=== PATIENT | female | born 1955 | race Caucasian/White ===

== ENCOUNTER 2019-04-14 16:23 | Inpatient (IN) | payer OTHER, SELFPAY ==
[2019-04-14] VITALS (8 sets, daily range): BP systolic 129–179; BP diastolic 84–112; PULSE 20–180; RESP 11–111; TEMP 36.7–37.1; O2SAT 95–99; BMI 29.7
--- NOTE | ~2019-04-14 | XR_ITS ---
EXAMINATION: XR chest 2V DATE: 04/14/2019 17:30 INDICATION: New atrial fibrillation presenting with shortness of breath and dizziness TECHNIQUE: PA and lateral views of the chest were obtained. COMPARISON: None FINDINGS: Opacities at the bilateral lower lung zones. No pneumothorax or pleural effusion. Cardiomegaly. Mild thoracic levocurvature with moderate spondylosis. IMPRESSION: 1. Bibasilar opacities which could represent atelectasis, mild pulmonary edema or pneumonia. 2. Cardiomegaly. Reviewed, dictated and finalized at location A. ITION TECHNICIAN
--- NOTE | 2019-04-14 16:33 | ECG_ITS ---
Measurements Intervals [place] Rate: 162 P: [place]: 0 QRS: 2 QRSD: 72 T: -3 QT: 212 QTc: 348 Interpretive Statements ATRIAL FIBRILLATION WITH RAPID VENTRICULAR RESPONSE NONSPECIFIC ST & T-WAVE ABNORMALITY- INF/LAT LEADS BASELINE ARTIFACT- I, II, AVR, AVF ABNORMAL ECG Electronically Signed On 04-14-2019 16:44:32 SCENIC ARTS SUPERVISOR by Ed Sullivan D.O.
--- NOTE | 2019-04-14 16:33 | ED.ARRPALP ---
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 Pt felt SOB whenever she woke up this morning. Pt states that her SOB has resolved. She notes that she went to work today and began feeling dizzy while walking down the cantu. Pt states that she stopped walking for a minute and her dizziness went away. Pt states that her dizziness has been intermittent throughout the day. Pt received an EKG and was sent to the ED for A-fib with RVR. Pt denies a hx of a-fib. Pt states that she exercises regularly. Pt denies palpitations, dysuria, nausea, and vomiting. complaint: atrial fibrillation Onset (ago): minute(s) Duration: constant Associated symptoms: shortness of breath ((resolved)) and other (dizziness (resovled)) Related Data Home Medications Medication Instructions Recorded Confirmed aspirin 325 mg tablet 325 mg PO DAILY 04/14/19 hydrochlorothiazide 12.5 mg capsule 12.5 mg PO DAILY 04/14/19 lysine 500 mg tablet 500 mg PO DAILY 04/14/19 magnesium 30 mg tablet 30 mg PO DAILY 04/14/19 omega-3 fatty acids 1,000 mg 1,000 mg PO DAILY 04/14/19 capsule Allergies Allergy/AdvReac Type Severity Reaction Status Date / Time Sulfa (Sulfonamide Allergy Severe Anaphylaxis Verified 04/14/19 15:10 Antibiotics) Review of Systems Review of Systems: All systems reviewed & are unremarkable except as noted in HPI and below Cardiovascular: Cardiovascular: Reports irregular heart rhythm and Denies palpitations Respiratory: Respiratory: Reports dyspnea ((resolved)) Gastrointestinal: Gastrointestinal: Denies nausea and Denies vomiting Genitourinary: Genitourinary: Denies dysuria Neurologic: Reports dizziness ((resolved)) FORMERLY [facility] Past Medical History Medical History (Updated 04/14/19 @ 20:04 by Chase Paez MD) Patient denies significant medical history Surgical History Surgical History (Updated 04/14/19 @ 17:08 by Danielle Paige) No history of previous surgery Social History Social History Smoking status: Never smoker Second hand tobacco smoke exposure: No Alcohol intake: never Gender identity (if verbalized by the patient): Female Exam Const: General: healthy appearing, no acute distress and well developed Nutritional Appearance: well nourished Orientation/consciousness: patient oriented x3 (alert) and Other orientation findings (Alert) Limitations: no limitations HENMT: Head: normocephalic and atraumatic Ears: external ears normal General nose exam: No nasal discharge present and no epistaxis Face and sinus: face symmetric Mouth: Yes lip normal, Yes tongue normal and Yes moist mucous membranes Throat: other (No exudate, no erythema) Eyes: Conjunctivae: conjunctivae normal Sclera: sclerae normal EOM: EOMs intact bilaterally Neck: Neck: full ROM, no lymphadenopathy and supple Thyroid: thyroid normal Chest: Chest palpation & inspection: no tenderness Resp: Effort & Inspection: normal respiratory effort Auscultation: clear to auscultation bilaterally, no rales, no rhonchi, no wheezes and other (breath sounds equal) Cardio: Rate: tachycardic Rhythm: abnormal rhythm irregularly irregular Heart sounds: no gallops and no murmurs GI: Inspection: non-distended GI Palp: No abdominal tenderness and Yes Soft to palpation Auscultation: other (bowel sounds present) : General: Yes no CVA tenderness Back/Spine/Pelvis: Back: no CVA tenderness Thoracic/Lumbar Spine: thoracic and lumbar spine normal to inspection Skin: General skin exam: normal color and no rashes or lesions noted Neuro: Ge
[2019-04-14 16:41] LABS: Basophils Absolute Auto 0.1 K/mm3 (0.0-0.1); Basophils Percent Auto 0.7 % (0.2-1.2); Eosinophils Absolute Auto 0.2 K/mm3 (0-0.3); Eosinophils Percent Auto 2.7 % (0-4.4); Hematocrit 43.4 % (37.0-47.0); Hemoglobin 13.9 g/dL (12.0-15.0); Immature Granulocyte Absolute 0.03 K/mm3 (0.00-0.031); Immature Granulocyte Percent A 0.4 % (0-0.5); Lymphocytes Absolute Auto 2.41 K/mm3 (0.9-3.2); Lymphocytes Percent Auto 28.6 % (18.3-44.2); Mean Corpuscular Hemoglobin 27.2 pg (26-34); Mean Corpuscular Volume 84.9 fl (80-100); Mean Platelet Volume 11.7 fl (7.4-10.4); Monocytes Absolute Auto 0.5 K/mm3 (0.1-0.6); Monocytes Percent Auto 6.3 % (2.6-8.5); Neutrophils Absolute Auto 5.2 K/mm3 (1.3-6.7); Neutrophils Percent Auto 61.3 % (45.5-73.1); Platelet Count Result 296 k/mm3 (150-375); Red Blood Count 5.11 M/mm3 (4.2-5.4); Red Cell Distribution Width 13.8 % (11.5-14.5); White Blood Count 8.4 K/mm3 (4.5-10.0)
[2019-04-14] MEDS: LACTATED RINGERS 1,000 ML 999 ML IV CONT (16:45)
[2019-04-14 16:54] LABS: Alanine Aminotransferase 53 U/L (4-35); Albumin Level 4.6 g/dL (3.5-5.1); Alkaline Phosphatase 102 U/L (38-126); Aspartate Amino Transferase 49 U/L (14-36); Bilirubin,Total 0.7 mg/dL (0.2-1.3); Blood Urea Nitrogen 11 mg/dL (7-17); Calcium 9.5 mg/dL (8.4-10.2); Carbon Dioxide 22 mmol/L (22-30); Chloride 105 mmol/L (98-107); Estimated CRCL calculation 78 ml/min; Estimated Glomerular Filt Rate > 60; Glucose 97 mg/dL (65-105); Magnesium 2.1 mg/dL (1.6-2.3); Potassium 3.4 mmol/L (3.4-5.0); Sodium 142 mmol/L (137-145)
[2019-04-14 17:06] LABS: Troponin I 0.015 ng/mL (0.000-0.034)
[2019-04-14 17:24] LABS: Free T4 Free Thyroxine 1.19 ng/mL (0.78-2.19)
[2019-04-14] MEDS: ENOXAPARIN 80 MG/0.8 ML SYRINGE 75 MG SUB-Q (18:52)
--- NOTE | 2019-04-14 19:25 | PM.IMHP ---
H&P: HPI History of Present Illness Chief complaint: Shortness of breath, dizziness, abnormal EKG. Narrative: Gifty Brown is a pleasant 63-year-old female with mild hypertension who presented to the emergency department earlier this afternoon for evaluation of shortness of breath, dizziness, and abnormal EKG. She was in her usual state of health when she went to bed last night, and woke up several times throughout the night due to her dog barking which is not unusual. When she got out of bed this morning, she felt short of breath and it sounds as though that was intermittent throughout the day while she was at work. She also had several episodes of dizziness/lightheadedness. She called her primary care provider and was seen briefly in the office. She was sent for immediate EKG which demonstrated atrial fibrillation with breath ventricular response, rate of 162. With further questioning, she has had similar episodes that have lasted no more than a minute on a couple of occasions the past 3 months. She was started on diltiazem drip in the emergency department without much benefit in her rate. Cardioversion x2 was attempted with 100 joules followed by 200 joules, which did slow her rate briefly before she once again went into atrial fibrillation with rapid ventricular response. At this time, she is not willing to try amiodarone as apparently her had severe complications with that drug. She has no prior history of cardiac dysrhythmia. No known history of cardiac disease. She has been diagnosed with mild hypertension and is being treated with 12.5 milligrams of hydrochlorothiazide daily. She will check her blood pressure at home and she has never seen a reading > 150/77. Blood pressure emergency department has been as high as 179/106, but she does note feeling quite anxious. She is very active, and in fact is currently training for a 100 mile bike ride. She has no history of thyroid disease. She drinks up to 2 pots of coffee per day. She does not drink soda and rarely drinks alcohol. No supplements. she has not had exertional chest pain or shortness of breath. No orthopnea, PND, or lower extremity edema. No concerns for sleep apnea. Review of Systems Review of Systems: Narrative: 12 systems were reviewed with pertinent positives and negatives as per HPI. No recent cold or flu symptoms. Weight has remained stable. She denies orthopnea, PND, and concerns for sleep apnea. She had some nausea earlier today, but denies vomiting. Except as documented, all other systems were reviewed and are negative. [facility]LY [facility] Past Medical History Medical History (Updated 04/14/19 @ 20:41 by Josefa Quiroga PA-C) Hypertension Surgical History Surgical History (Updated 04/14/19 @ 20:39 by Josefa Quiroga PA-C) No history of previous surgery Status post cholecystectomy Status post hysterectomy Status post tonsillectomy Social History Social History (Updated 04/14/19 @ 20:50 by Josefa Quiroga PA-C) Social History: The patient lives in [place], [place] with her significant other, Sander. She has a lab/boxer mix named Margaret that lives at home. 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 She has 2 biologic sons and 1 adopted son. She designates her eldest son, Christian Stockton, as her surrogate decision maker and she wishes to be a full code. She is a lifelong nonsmoker. She drinks alcohol very rarely and on social occasions. No drug use. Meds Home Medications and Allergies Home Medications Medication Instructions Recorded Confirmed Type aspirin 325 mg tablet 325 mg PO DAILY 04/14/19 History hydrochlorothiazide 12.5 mg capsule 12.5 mg PO DAILY 04/14/19 History lysine 500 mg tablet 500 mg PO DAILY 04/14/19 History magnesium 30 mg tablet 30 mg PO DAILY 04/14/19 History omega-3 fatty acids 1,000 mg 1,000 mg PO DAILY 04/14/19 History cap
[2019-04-14] MEDS: MIDAZOLAM HCL 2 MG/2 ML VIAL 5 MG IV PUSH (19:39)
[2019-04-14] MEDS: SODIUM CHLORIDE 0.9% IV 1,000 ML 500 ML (20:05)
[2019-04-14 21:13] LABS: Troponin I 0.015 ng/mL (0.000-0.034)
--- NOTE | 2019-04-14 22:07 | ADMGEN ---
This patient, Gifty Brown, was admitted to IMU Room 202-01. Patient/family oriented to hospital policies and general routines including ID bracelet, bed and alarms, visiting hours, pain management, procedures, bathroom and other care routines, personal items, smoking policy, room service/diet, and visiting hours. Valuables list has been completed. Information on how to activate the Rapid Response Team has been discussed. Patient/Family are encouraged to report perceived risks to care and to ask questions if they do not understand what they are told or what they should do.
[2019-04-14] MEDS: ACETAMINOPHEN 325 MG TABLET 650 MG PO (22:29)
[2019-04-14] MEDS: LACTATED RINGERS 1,000 ML 125 ML IV CONT (22:39)
[2019-04-15] VITALS (15 sets, daily range): BP systolic 108–135; BP diastolic 44–86; PULSE 76–113; RESP 16–20; TEMP 36–36.8; O2SAT 93–99
[2019-04-15 00:10] LABS: Troponin I 0.013 ng/mL (0.000-0.034)
[2019-04-15] MEDS: ENOXAPARIN 80 MG/0.8 ML SYRINGE 75 MG SUB-Q ×2 (05:55→17:12)
--- NOTE | 2019-04-15 06:00 | ECHO_ITS ---
Patient Info Name: Gifty Brown Age: 63 years : 1955 Gender: Female Ht: 62 in Wt: 162 lbs BSA: 1.82 m2 HR: 82 bpm BP: 123 / 66 mmHg Heart Rhythm: Atrial Fibrillation Technical Quality: Good Exam Date: 04/15/2019 10:22 AM Exam Location: [facility]am Room: [facility] Patient Status: Inpatient Admit Date: 04/15/2019 Staff Ordering Physician: Chase Paez MD Customer Engineering Specialist: Laurel Guajardo RDCS Attending Provider: Ansley Garibay MD Referring Physician: Philippe QUARLES; Exam Type: CA echo doppler color flow Study Info Indications - AFIB Complete two-dimensional, color flow and Doppler transthoracic echocardiogram is performed. Summary 1. Left ventricular chamber dimension is mildly enlarged. 2. Left ventricular systolic function is normal, estimated at 60-65%. 3. The left ventricular diastolic function is abnormal. 4. E/e' 10 is mildly elevated. 5. Patient is in atrial fibrillation. 6. Left atrial chamber dimension is severely enlarged. 7. Right atrial chamber dimension is mildly enlarged. 8. There is mild aortic valve sclerosis. 9. The mitral valve has mildly calcified annulus. 10. There is mild to moderate mitral valve regurgitation. 11. There is mild to moderate tricuspid valve regurgitation. 12. No pulmonary hypertension, estimated pulmonary arterial systolic pressure is 23 mmHg. 13. There is trace pulmonic regurgitation. Left Ventricle E/e' 10 is mildly elevated. Patient is in atrial fibrillation. Left ventricular chamber dimension is mildly enlarged. Left ventricular systolic function is normal, estimated at 60-65%. The left ventricular diastolic function is abnormal. Right Ventricle Right ventricular chamber dimension is normal. Right ventricular systolic function is normal. Left Atria Left atrial chamber dimension is severely enlarged. Right Atria Right atrial chamber dimension is mildly enlarged. Aortic Valve The aortic valve is trileaflet. There is mild aortic valve sclerosis. There is no aortic valve stenosis. There is no aortic valve regurgitation. Pulmonic Valve There is trace pulmonic regurgitation. Mitral Valve The mitral valve has mildly calcified annulus. There is no mitral valve stenosis. There is mild to moderate mitral valve regurgitation. Tricuspid Valve There is mild to moderate tricuspid valve regurgitation. No pulmonary hypertension, estimated pulmonary arterial systolic pressure is 23 mmHg. Pericardium/Pleural There is no pericardial effusion. Inferior Vena Cava Normal inferior vena cava with >50% collapse upon inspiration consistent with normal right atrial pressure, 5 mmHg. Aorta The aortic root size at the sinus of Valsalva is normal. Left Ventricular Outflow Tract Name Value Normal LVOT 2D LVOT Diameter 2.0 cm LVOT Doppler LVOT Peak Gradient 4 mmHg LVOT Mean Gradient 3 mmHg LVOT VTI 20 cm LVOT VTI/AV VTI Ratio 0.8 LVOT Stroke Volume 64 ml
[2019-04-15] MEDS: ACETAMINOPHEN 325 MG TABLET 650 MG PO (06:51)
[2019-04-15] MEDS: LACTATED RINGERS 1,000 ML 125 ML IV CONT (09:14)
[2019-04-15] MEDS: OMEGA 3 POLYUNSAT FATTY ACIDS 1 GM CAP PO (09:15)
[2019-04-15] MEDS: ASPIRIN 81 MG CHEWABLE TABLET PO (09:15)
--- NOTE | 2019-04-15 11:38 | PM.CNCAR ---
Assessment and Plan Assessment and plan (1) Atrial fibrillation with rapid ventricular response: Code(s): I48.91 - Unspecified atrial fibrillation Status: Acute Assessment and Plan: [id number] 2. Rate controlled with Diltiazem. She is on Lovenox. She can be on aspirin EC 325 mg daily upon discharge given low risk for cardioembolism. Start Sotalol 80 mg BID for rhythm control. If she is still in it on the third day, consider CHAPIS/Cardioversion. Check echo. (2) Hypertension: Code(s): I10 - Essential (primary) hypertension Status: Acute Assessment and Plan: Stable. History of Present Illness History of Present Illness Consult date/time: 04/15/19 11:38 Consult regarding new onset atrial fib with RVR. 63 yr old woman with history of hypertension reports waking up this morning with dizziness intermittently. On the way to work she noticed ENRIQUEZ walking into building when normally she can walk 3 miles without any problems. She wento to see her PCP who directed her to get EKG and found she was in atrial fib at 162 bpm. She was then advised to go to ER. In ED, her HR was fast and difficult to get HR down so she had 2 DC cardioversions when it cardioverted but returned into atrial fibrillation immediately. Currently she is in atrial fib at 90-100 bpm on Diltiazem drip. Denies chest pain, sob, orthopnea, edema, palpitations. 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 Reason For Visit: A-FIB WITH RVR,NEW ONSET Review of Systems Review of Systems: All systems reviewed & are unremarkable except as noted in HPI and below Constitutional: Constitutional: Reports as per HPI and Denies chills Cardiovascular: Cardiovascular: Reports as per HPI, Denies chest pain, Denies diaphoresis, Denies leg edema and Reports lightheadedness Respiratory: Respiratory: Reports as per HPI and Reports dyspnea on exertion Gastrointestinal: Gastrointestinal: Reports as per HPI and Denies abdominal pain Genitourinary: Genitourinary: Reports as per HPI and Denies urinary frequency Musculoskeletal: Musculoskeletal: Reports as per HPI Neurologic: Reports as per HPI and Denies confusion [facility] Past Medical History Medical History (Updated 04/14/19 @ 20:41 by Josefa Quiroga PA-C) Hypertension Surgical History Surgical History (Updated 04/14/19 @ 20:39 by Josefa Quiroga PA-C) No history of previous surgery Status post cholecystectomy Status post hysterectomy Status post tonsillectomy Family History Family History (Updated 04/15/19 @ 00:48 by Nica Domingo RN) Sibling Family history of malignant neoplasm Family history of lupus erythematosus Hypertension Family history of arthritis Father Family history of dementia Hypertension Mother Hypertension Sibling Family history of arthritis Social History Social History (Updated 04/14/19 @ 20:50 by Josefa Quiroga PA-C) Social History: The patient lives in [place], [place] with her significant other, Sander. She has a lab/boxer mix named Margaret that lives at home. 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 She has 2 biologic sons and 1 adopted son. She designates her eldest son, Christian Stockton, as her surrogate decision maker and she wishes to be a full code. She is a lifelong nonsmoker. She drinks alcohol very rarely and on social occasions. No drug use. Smoking packs per day: 0.5 Smoking cigarettes per day: 10.0 Years smoked: 12 Smoking pack-years: 6.00 Smoking status: Former smoker Alcohol intake: never Substance use: never Agree to blood products: Yes Meds Home Medications and Allergies Home Medications Medication Instructions Recorded Confirmed Type aspirin 325 mg tablet 325 mg PO DAILY 04/14/19 04/14/19 History hydrochlorothiazide 12.5 mg capsule 12.5 mg PO HS 04/14/1904/14
[2019-04-15] MEDS: SOTALOL HCL 80 MG TABLET PO ×2 (13:35→21:14)
--- NOTE | 2019-04-15 14:22 | PM.IMPN ---
Progress Note: A&P Assessment and Plan (1) Atrial fibrillation with rapid ventricular response: Code(s): I48.91 - Unspecified atrial fibrillation Status: Acute Assessment and Plan: Jacky Brown is a pleasant 63-year-old female with mild hypertension who presented to the emergency department earlier this afternoon for evaluation of shortness of breath, dizziness, and abnormal EKG. Pt was on diltiazem drip in the emergency department without much benefit in her rate. Cardioversion x2 was attempted with 100 joules followed by 200 joules, which did slow her rate briefly before she once again went into atrial fibrillation with rapid ventricular response. Pt still in AF slightly fast. Seen by cardiology Dr Sullivan, pt to start on sotolol today, home tomorrow. Echo shows Patient is in atrial fibrillation. Left ventricular chamber dimension is mildly enlarged. Left ventricular systolic function is normal, estimated at 60-65%. The left ventricular diastolic function is abnormal. (2) Hypertension: Code(s): I10 - Essential (primary) hypertension Status: Acute Assessment and Plan: Will monitor overnite and discharge tomorrow Subjective Date/time seen: 04/15/19 14:22 Interval history: Jacky Brown is a pleasant 63-year-old female with mild hypertension who presented to the emergency department earlier this afternoon for evaluation of shortness of breath, dizziness, and abnormal EKG. Pt was on diltiazem drip in the emergency department without much benefit in her rate. Cardioversion x2 was attempted with 100 joules followed by 200 joules, which did slow her rate briefly before she once again went into atrial fibrillation with rapid ventricular response. Pt still in AF slightly fast. Seen by cardiology Dr Sullivan, pt to start on sotolol today, home tomorrow. Review of Systems Cardiovascular: Cardiovascular: Denies no additional cardiovascular complaints, Denies chest pain, Denies leg edema, Denies lightheadedness and Reports palpitations Respiratory: Respiratory: Denies no additional respiratory complaints Gastrointestinal: Gastrointestinal: Denies no additional gastrointestinal complaints Musculoskeletal: Musculoskeletal: Denies no additional musculoskeletal complaints Neurologic: Denies system reviewed and no additional complaints, except as documented Exam Narrative: Exam Narrative: General: A well-developed, well-nourished female supine in bed in no acute distress. Nontoxic in appearance. HEENT: Normocephalic, atraumatic. PERRL, EOMI. Sclerae anicteric. Oral mucosa moist. Oropharynx clear. Neck: Supple. No thyromegaly, bruits, or JVD. Respiratory: Lungs are clear to auscultation bilaterally. Cardiovascular: Irregular rate and rhythm, telemetry demonstrating atrial fibrillation with rapid ventricular response with rates in the 160s. No murmur. Gastrointestinal: Abdomen is soft, nontender, and nondistended with positive bowel sounds. Skin: Warm and dry. No rash or lesions on limited exam. Extremities: No cyanosis, clubbing, or edema. Radial and pedal pulses intact. Neurological: Alert. Cranial nerves 2-12 are grossly intact. No gross focal deficits to casual conversation. Psychiatric: Pleasant and cooperative. Slightly anxious. Judgment and insight intact. Objective Data Vital Signs Vital Signs: Vital Signs - 24 hr 04/14/19 16:34 04/14/19 16:47 04/14/19 19:41 Temperature 37.1 C Pulse Rate 180 H 145 H 150 H Respiratory Rate 23 H 31 H 18 Blood Pressure 179/106 H 163/102 H 139/96 H Pulse Oximetry 98 95 97 04/14/19 19:44 04/14/19 21:00 04/14/19 22:02 Temperature Pulse Rate 144 H 118 H 129 H Respiratory Rate 11 L 23 H Blood Pressure 137/112 H 129/84 Pulse Oximetry 99 98 04/14/19 22:07 04/14/19 22:15 04/15/19 00:00 Temperature 36.7 C 36.6 C Pulse Rate 20 L 114 H 107 H Respiratory Rate 111 H 20 Blood Pressure 140/87 129/71 Pulse Oximetry 97 99
--- NOTE | 2019-04-15 16:38 | ECG_ITS ---
Measurements Intervals [place] Rate: 82 P: [place]: 0 QRS: -4 QRSD: 86 T: 256 QT: 397 QTc: 465 Interpretive Statements ATRIAL FIBRILLATION NONSPECIFIC ST & T-WAVE ABNORMALITY- ANTEROLAT/LAT LEADS ABNORMAL ECG Electronically Signed On 04-15-2019 19:47:01 MANAGER PARK by Ed Sullivan D.O.
[2019-04-15] MEDS: hydroCHLOROthiazide 12.5 MG CAPSULE PO (21:14)
[2019-04-16] VITALS (17 sets, daily range): BP systolic 118–133; BP diastolic 63–74; PULSE 52–80; RESP 16–20; TEMP 36–36.4; O2SAT 94–97
[2019-04-16] MEDS: ENOXAPARIN 80 MG/0.8 ML SYRINGE 75 MG SUB-Q ×2 (05:42→17:40)
--- NOTE | 2019-04-16 06:18 | ECG_ITS ---
Measurements Intervals [place] Rate: 66 P: 73 HI: 163 QRS: 4 QRSD: 81 T: 0 QT: 410 QTc: 430 Interpretive Statements SINUS RHYTHM ATRIAL PREMATURE COMPLEXES BORDERLINE ST-T WAVE ABNORMALITY- DIFFUSE LEADS BASELINE ARTIFACT- I, II, III, AVR, AVL, AVF BORDERLINE ECG Electronically Signed On 04-16-2019 9:03:27 TALENT ASSISTANT by Ed Sullivan D.O.
--- NOTE | 2019-04-16 08:17 | PM.PNCARD ---
Progress Note: A&P Assessment and Plan (1) Atrial fibrillation with rapid ventricular response: Code(s): I48.91 - Unspecified atrial fibrillation Status: Acute Assessment and Plan: Cardioverted on 04/15/19. Continue Sotalol and Lovenox for another 3 doses. Check EKG 1-2 hours post each dose of Sotalol to check QT interval. (2) Hypertension: Code(s): I10 - Essential (primary) hypertension Status: Acute Assessment and Plan: Stable. Give KCl 40 meq PO x 1. Subjective Date/time seen: 04/16/19 08:17 Reports she felt she cardioverted yesterday. No longer having difficulty with taking a deep breath. Denies chest pain. Exam Const: General: comfortable and no acute distress Neck: Neck: no JVD Resp: Auscultation: clear to auscultation bilaterally, no crackles, no rales, no rhonchi and no wheezes Cardio: Rate: regular rate Rhythm: regular rhythm Heart sounds: no murmurs GI: Inspection: non-distended Neuro: Speech: normal speech Extrem: Right lower extremity: no edema Left lower extremity: no edema Objective Data Vital Signs Vital Signs: Vital Signs - 24 hr 04/15/19 10:00 04/15/19 12:00 04/15/19 13:35 Temperature 96.8 F L Pulse Rate 106 H 83 84 Respiratory Rate 18 Blood Pressure Pulse Oximetry 97 04/15/19 14:00 04/15/19 16:00 04/15/19 18:00 Temperature 98.3 F Pulse Rate 85 113 H 82 Respiratory Rate 16 Blood Pressure 130/86 Pulse Oximetry 95 04/15/19 20:00 04/15/19 21:14 04/15/19 21:47 Temperature 98.0 F Pulse Rate 80 88 95 Respiratory Rate 18 Blood Pressure 135/74 Pulse Oximetry 95 04/15/19 23:40 04/16/19 00:00 04/16/19 01:46 Temperature 97.7 F Pulse Rate 79 66 70 Respiratory Rate 20 20 Blood Pressure 118/65 Pulse Oximetry 94 94 04/16/19 04:00 04/16/19 05:39 Temperature Pulse Rate 74 68 Respiratory Rate 20 Blood Pressure Pulse Oximetry 94 Intake/Output Intake/Output: Intake & Output 04/13/19 04/14/19 04/15/19 04/16/19 23:59 23:59 23:59 23:59 Intake Total 1999 3670 100 Output Total 850 Balance 1999 2820 100 Meds/Results Medications: Active Medications Generic Name Dose Route Start Last Admin Trade Name Freq PRN Reason Stop Dose Admin Acetaminophen 650 mg 04/14/19 20:04 04/15/19 06:51 Tylenol Tablet PO 650 mg Q4H PRN Administration Mild Pain (1-3) or Fever Aspirin 81 mg 04/15/19 08:00 04/15/19 09:15 Aspirin Chewable PO 81 mg DAILY@0800 PILAR Administration Enoxaparin Sodium 75 mg 04/15/19 06:00 04/16/19 05:42 Lovenox SUB-Q 75 mg Q12H PILAR Administration Fish Oil 1 gm 04/15/19 09:00 04/15/19 09:15 Lovaza PO 1 gm DAILY PILAR Administration Hydrochlorothiazide 12.5 mg 04/15/19 21:00 04/15/19 21:14 Hydrochlorothiazide PO 12.5 mg HS PILAR Administration Magnesium Gluconate 27 mg 04/15/19 09:00 04/15/19 09:15 Magonate PO 05/15/19 09:01 27 mg DAILY PILAR Administration Sotalol HCl 80 mg 04/15/19 11:40 04/15/19 21:14 Betapace PO 80 mg Q12HR PILAR Administration Radiology Results: ITS Impressions Chest X-Ray 04/14/19 17:34 IMPRESSION: 1. Bibasilar opacities which could represent atelectasis, mild pulmonary edema or pneumonia. 2. Cardiomegaly. Quality VTE Prophylaxis VTE prophylaxis: pharmacologic ordered
[2019-04-16] MEDS: OMEGA 3 POLYUNSAT FATTY ACIDS 1 GM CAP PO (08:42)
[2019-04-16] MEDS: SOTALOL HCL 80 MG TABLET PO ×2 (08:42→20:26)
[2019-04-16] MEDS: ASPIRIN 81 MG CHEWABLE TABLET PO (08:42)
[2019-04-16] MEDS: POTASSIUM CHLORIDE 20 MEQ TABLET 40 MEQ PO (08:42)
[2019-04-16] MEDS: ACETAMINOPHEN 325 MG TABLET 650 MG PO (08:44)
--- NOTE | 2019-04-16 10:00 | ECG_ITS ---
Measurements Intervals [place] Rate: 49 P: 46 NM: 172 QRS: 3 QRSD: 85 T: -30 QT: 482 QTc: 435 Interpretive Statements SINUS BRADYCARDIA NONSPECIFIC ST & T-WAVE ABNORMALITY- DIFFUSE LEADS ABNORMAL ECG Electronically Signed On 04-16-2019 9:02:53 STAMP ANALYST by Ed Sullivan D.O.
--- NOTE | 2019-04-16 12:16 | PM.IMPN ---
Progress Note: A&P Assessment and Plan (1) Atrial fibrillation with rapid ventricular response: Code(s): I48.91 - Unspecified atrial fibrillation Status: Acute Assessment and Plan: Jacky Brown is a pleasant 63-year-old female with mild hypertension who presented to the emergency department earlier this afternoon for evaluation of shortness of breath, dizziness, and abnormal EKG. Pt was on diltiazem drip in the emergency department without much benefit in her rate. Cardioversion x2 was attempted with 100 joules followed by 200 joules, which did slow her rate briefly before she once again went into atrial fibrillation with rapid ventricular response. Pt still in AF slightly fast. Seen by cardiology Dr Sullivan, pt to start on sotolol today, continue to day and monitor hopeful discharge deanna home. Echo shows Patient is in atrial fibrillation. Left ventricular chamber dimension is mildly enlarged. Left ventricular systolic function is normal, estimated at 60-65%. The left ventricular diastolic function is abnormal. (2) Hypertension: Code(s): I10 - Essential (primary) hypertension Status: Acute Assessment and Plan: Will monitor overnite and discharge tomorrow Subjective Date/time seen: 04/16/19 12:16 Interval history: Jacky Brown is a pleasant 63-year-old female with mild hypertension who presented to the emergency department earlier this afternoon for evaluation of shortness of breath, dizziness, and abnormal EKG. Pt was on diltiazem drip in the emergency department without much benefit in her rate. Cardioversion x2 was attempted with 100 joules followed by 200 joules, which did slow her rate briefly before she once again went into atrial fibrillation with rapid ventricular response. Pt still by Dr Sullivan started on sotalol converted to NSR pt to continue being monitored for one more day and discharged home on sotalol and ASA as per cardiology Review of Systems Review of Systems: All systems reviewed & are unremarkable except as noted in HPI and below Constitutional: Constitutional: Reports no additional constitutional complaints Cardiovascular: Cardiovascular: Denies no additional cardiovascular complaints, Denies chest pain, Denies leg edema, Denies lightheadedness and Reports palpitations Respiratory: Respiratory: Denies no additional respiratory complaints Gastrointestinal: Gastrointestinal: Denies no additional gastrointestinal complaints Musculoskeletal: Musculoskeletal: Denies no additional musculoskeletal complaints Neurologic: Denies system reviewed and no additional complaints, except as documented Endocrine: Endocrine: Denies palpitations Exam Narrative: Exam Narrative: General: A well-developed HEENT: Normocephalic Neck: Supple. Respiratory: Lungs are clear to auscultation bilaterally. Cardiovascular: Irregular rate and rhythm, telemetry demonstrating atrial fibrillation with rapid ventricular response with rates in the 160s. No murmur. Gastrointestinal: Abdomen is soft, nontender, and nondistended with positive bowel sounds. Skin: Warm and dry. No rash or lesions on limited exam. Extremities: No cyanosis, clubbing, or edema. Radial and pedal pulses intact. Neurological: Alert. Cranial nerves 2-12 are grossly intact. No gross focal deficits to casual conversation. Psychiatric: Pleasant and cooperative. Slightly anxious. Judgment and insight intact. Objective Data Vital Signs Vital Signs: Vital Signs - 24 hr 04/15/19 13:35 04/15/19 14:00 04/15/19 16:00 Temperature 36.8 C Pulse Rate 84 85 113 H Respiratory Rate 16 Blood Pressure 130/86 Pulse Oximetry 95 04/15/19 18:00 04/15/19 20:00 04/15/19 21:14 Temperature 36.7 C Pulse Rate 82 80 88 Respiratory Rate 18 Blood Pressure 135/74 Pulse Oximetry 95 04/15/19 21:47 04/15/19 23:40 04/16/19 00:00 Temperature 36.5 C Pulse Rate 95 79 66 Respiratory Rate 20 20 Blood
--- NOTE | 2019-04-16 14:06 | PC.NURSE ---
On 04/16/19, the student, [adan birmingham ], provided care and completed [facility] documentation on this patient. I have reviewed the student's documentation and agree with the findings.
[2019-04-16] MEDS: hydroCHLOROthiazide 12.5 MG CAPSULE PO (20:26)
--- NOTE | 2019-04-16 22:30 | ECG_ITS ---
Measurements Intervals [place] Rate: 62 P: 55 GA: 157 QRS: 6 QRSD: 89 T: -8 QT: 453 QTc: 463 Interpretive Statements SINUS RHYTHM BORDERLINE ST-T WAVE ABNORMALITY- DIFFUSE LEADS BORDERLINE ECG Electronically Signed On 04-17-2019 7:02:49 DIRECTOR WEIGHTS AND MEASURES by Ed Sullivan D.O.
[2019-04-17] VITALS (9 sets, daily range): BP systolic 117–135; BP diastolic 62–72; PULSE 54–70; RESP 18–20; TEMP 36.2–37.2; O2SAT 92–96
[2019-04-17 05:10] LABS: Blood Urea Nitrogen 9 mg/dL (7-17); Calcium 8.9 mg/dL (8.4-10.2); Carbon Dioxide 26 mmol/L (22-30); Chloride 106 mmol/L (98-107); Estimated CRCL calculation 66 ml/min; Estimated Glomerular Filt Rate > 60; Glucose 84 mg/dL (65-105); Potassium 3.3 mmol/L (3.4-5.0); Sodium 140 mmol/L (137-145)
[2019-04-17] MEDS: ENOXAPARIN 80 MG/0.8 ML SYRINGE 75 MG SUB-Q (05:54)
[2019-04-17] MEDS: OMEGA 3 POLYUNSAT FATTY ACIDS 1 GM CAP PO (07:32)
[2019-04-17] MEDS: SOTALOL HCL 80 MG TABLET PO (07:32)
[2019-04-17] MEDS: POTASSIUM CHLORIDE 20 MEQ TABLET 40 MEQ PO (07:32)
[2019-04-17] MEDS: ASPIRIN 81 MG CHEWABLE TABLET PO (07:36)
--- NOTE | 2019-04-17 07:50 | PM.PNCARD ---
Progress Note: A&P Assessment and Plan (1) Atrial fibrillation with rapid ventricular response: Code(s): I48.91 - Unspecified atrial fibrillation Status: Acute Assessment and Plan: [id number] 2. Cardioverted on 04/15/19. Received Sotalol 80 mg BID for a total of 5 doses and stable QTc interval. D/C Lovenox and start Aspirin EC 325 mg daily. F/U with me in 1 week. (2) Hypertension: Code(s): I10 - Essential (primary) hypertension Status: Acute Assessment and Plan: Stable. Potassium 3.3 today. Give KCl 40 meq PO x 1. Stop HCTZ. Start Losartan 25 mg daily. Subjective Date/time seen: 04/17/19 07:50 She feels great and wants to go home. Denies chest pain or sob. Exam Const: General: comfortable and no acute distress Neck: Neck: no JVD Cardio: Rate: regular rate Rhythm: regular rhythm Heart sounds: no murmurs Neuro: Speech: normal speech Extrem: Right lower extremity: no edema Left lower extremity: no edema Objective Data Vital Signs Vital Signs: Vital Signs - 24 hr 04/16/19 08:00 04/16/19 08:30 04/16/19 08:42 Temperature 96.8 F L 96.8 F L Pulse Rate 55 L 52 L 80 Respiratory Rate 16 16 Blood Pressure 118/69 118/69 Pulse Oximetry 97 97 04/16/19 09:52 04/16/19 11:14 04/16/19 12:00 Temperature 97.4 F L Pulse Rate 54 L 52 L 61 Respiratory Rate 18 Blood Pressure 121/74 Pulse Oximetry 97 04/16/19 12:04 04/16/19 14:00 04/16/19 16:00 Temperature 97.4 F L 96.9 F L Pulse Rate 52 L 58 L 67 Respiratory Rate 18 18 Blood Pressure 121/74 133/69 Pulse Oximetry 97 96 04/16/19 18:00 04/16/19 20:00 04/16/19 20:26 Temperature 97.5 F L Pulse Rate 66 67 68 Respiratory Rate 16 Blood Pressure 133/63 Pulse Oximetry 95 04/16/19 22:00 04/17/19 00:00 04/17/19 02:00 Temperature 99 F Pulse Rate 65 61 63 Respiratory Rate 18 Blood Pressure 117/72 Pulse Oximetry 92 04/17/19 03:37 04/17/19 03:38 04/17/19 04:00 Temperature 97.2 F L Pulse Rate 54 L 54 L 63 Respiratory Rate 20 20 Blood Pressure 119/62 Pulse Oximetry 94 94 04/17/19 06:00 04/17/19 07:32 Temperature Pulse Rate 63 70 Respiratory Rate Blood Pressure Pulse Oximetry Intake/Output Intake/Output: Intake & Output 04/14/19 04/15/19 04/16/19 04/17/19 23:59 23:59 23:59 23:59 Intake Total 1999 3670 780 400 Output Total 850 Balance 1999 2820 780 400 Meds/Results Medications: Active Medications Generic Name Dose Route Start Last Admin Trade Name Freq PRN Reason Stop Dose Admin Acetaminophen 650 mg 04/14/19 20:04 04/16/19 08:44 Tylenol Tablet PO 650 mg Q4H PRN Administration Mild Pain (1-3) or Fever Aspirin 81 mg 04/15/19 08:00 04/17/19 07:36 Aspirin Chewable PO 81 mg DAILY@0800 [facility] Administration Enoxaparin Sodium 75 mg 04/15/19 06:00 04/17/19 05:54 Lovenox SUB-Q 75 mg Q12H PILAR Administration Fish Oil 1 gm 04/15/19 09:00 04/17/19 07:32 Lovaza PO 1 gm DAILY PILAR Administration Losartan Potassium 25 mg 04/17/19 09:00 Cozaar PO QAM PILAR Magnesium Gluconate 27 mg 04/15/19 09:00 04/17/19 07:33 Magonate PO 05/15/19 09:01 27 mg DAILY PILAR Administration Sotalol HCl 80 mg 04/15/19 11:40 04/17/19 07:32 Betapace PO 80 mg Q12HR PILAR Administration Radiology Results: ITS Impressions Chest X-Ray 04/14/19 17:34 IMPRESSION: 1. Bibasilar opacities which could represent atelectasis, mild pulmonary edema or pneumonia. 2. Cardiomegaly. Labs Labs: Laboratory Results - last 24 hr 04/17/19 04:13 Sodium 140 Potassium 3.3 L Chloride 106 Carbon Dioxide 26 BUN 9 Creatinine 0.70 Estim Creat Clear Calc 66 Estimated GFR > 60 Glucose 84 Calcium 8.9 Quality VTE Prophylaxis VTE prophylaxis: pharmacologic ordered
[2019-04-17] MEDS: ASPIRIN 81 MG CHEWABLE TABLET 243 MG PO (08:41)
[2019-04-17] MEDS: LOSARTAN POTASSIUM 25 MG TABLET PO (08:41)
--- NOTE | 2019-04-17 09:08 | PM.DS ---
DS: Diagnosis Admitting Diagnosis Admitting Diagnosis: Unspecified atrial fibrillation Discharge Diagnosis (1) Atrial fibrillation with rapid ventricular response: Code(s): I48.91 - Unspecified atrial fibrillation Status: Acute Assessment and Plan: Jacky Brown is a pleasant 63-year-old female with mild hypertension who presented to the emergency department earlier this afternoon for evaluation of shortness of breath, dizziness, and abnormal EKG. Pt was on diltiazem drip in the emergency department without much benefit in her rate. Cardioversion x2 was attempted with 100 joules followed by 200 joules, which did slow her rate briefly before she once again went into atrial fibrillation with rapid ventricular response. Pt still in AF slightly fast. Seen by cardiology Dr Sullivan, pt to started on sotolol for rate control. Echo shows Patient is in atrial fibrillation. Left ventricular chamber dimension is mildly enlarged. Left ventricular systolic function is normal, estimated at 60-65%. The left ventricular diastolic function is abnormal. Pt is converted backto NSR and is stable for discharge. Follow up with Dr Sullivan in 1 weeks time. (2) Hypertension: Code(s): I10 - Essential (primary) hypertension Status: Chronic Assessment and Plan: Chronic and stable. Bp is 135/64 DS: Summary Time Spent with Patient Time attestation: Total time spent providing and/or coordinating discharge services:40 minutes on day of discharge. Exam Narrative: Exam Narrative: General: A well-developed HEENT: Normocephalic Neck: Supple. Respiratory: Lungs are clear to auscultation bilaterally. Cardiovascular: Irregular rate and rhythm, telemetry demonstrating atrial fibrillation with rapid ventricular response with rates in the 160s. No murmur. Gastrointestinal: Abdomen is soft, nontender, and nondistended with positive bowel sounds. Skin: Warm and dry. No rash or lesions on limited exam. Extremities: No cyanosis, clubbing, or edema. Radial and pedal pulses intact. Neurological: Alert. Cranial nerves 2-12 are grossly intact. No gross focal deficits to casual conversation. Psychiatric: Pleasant and cooperative. Slightly anxious. Judgment and insight intact. DS: Data Data Completed and Pending Labs on day of discharge: Labs from last 24 hours 04/17/19 04:13 Sodium 140 Potassium 3.3 L Chloride 106 Carbon Dioxide 26 BUN 9 Creatinine 0.70 Estim Creat Clear Calc 66 Estimated GFR > 60 Glucose 84 Calcium 8.9 Discharge Plan Discharge Attending physician on discharge: Ansley Garibay Consulting providers: Ed Sullivan Discharging Clinician: Ansley Garibay Anticipated Discharge Date/Time: 04/17/19 09:07 Patient Disposition: Home, Self-Care Activity: as tolerated Diet: heart healthy Patient Instructions: Antibiotic Form Stand Alone Forms: General Discharge Information Follow-up/Referrals: Ed Sullivan, [Physician] - 1 Week (call for follow up appt. in one week) Discharge Medications: New sotalol 80 mg Tablet 80 mg PO Q12HR Qty: 60 RF: 0 losartan 25 mg Tablet 25 mg PO QAM Qty: 30 RF: 0 omega-3 acid ethyl esters 1 gram Capsule 1 g PO DAILY RF: 0 Continued lysine [L-Lysine] 500 mg tablet 500 mg PO DAILY RF: 0 magnesium 30 mg tablet 30 mg PO DAILY RF: 0 aspirin 325 mg tablet 325 mg PO DAILY RF: 0 Discontinued hydrochlorothiazide 12.5 mg capsule 12.5 mg PO HS RF: 0 omega-3 fatty acids [Fish Oil Concentrate] 1,000 mg capsule 1,000 mg PO DAILY RF: 0 Date of admission: 04/15/19 10:09 Primary Care Provider: Jay Jay Sidhu Admitting Provider: Flora Suh Attending physician on admission: Ansley Garibay Condition: Stable
--- NOTE | 2019-04-17 09:09 | ECG_ITS ---
Measurements Intervals [place] Rate: 62 P: 42 MO: 150 QRS: 1 QRSD: 77 T: 0 QT: 412 QTc: 420 Interpretive Statements SINUS RHYTHM VOLTAGE CRITERIA FOR LVH NONSPECIFIC T-WAVE ABNORMALITY- ANTEROLAT/INF LEADS BORDERLINE ECG Electronically Signed On 04-17-2019 9:32:33 NATIONAL COVERAGE SPECIALIST by Ed Sullivan D.O.
== END 2019-04-17 10:23 | disposition home or self-care (01) | DRG 310 ==
LOC: ANHED 20:43 → ANHIMU 21:04
PROVIDERS: Internal Medicine Cardiovascular Disease; Admitting Provider Hospitalist; Emergency Provider Emergency Medicine; PCP Physician Assistant; Visit Provider Family Medicine
DX: I48.91 Unspecified atrial fibrillation (principal); I10 Essential (primary) hypertension; F41.9 Anxiety disorder, unspecified; Z90.49 Acquired absence of other specified parts of digestive tract; Z90.710 Acquired absence of both cervix and uterus
CPT/HCPCS: 36415; 71046; 80048; 80053; 83735; 84439; 84443; 84484; 85025; 93005; 93306; 94762; 96361; 96365; 96366; 96372; 96375; 96376; 99285; A9270; G0378; J1650; J2250; J7030; J7120

== ENCOUNTER 2019-05-04 02:47 | Observation (INO) | payer OTHER, SELFPAY ==
[2019-05-04] VITALS (29 sets, daily range): BP systolic 138–166; BP diastolic 71–93; PULSE 59–98; RESP 12–20; TEMP 35.7–37.2; O2SAT 95–100; BMI 30.7
--- NOTE | 2019-05-04 | ECHOL_ITS ---
Patient Info Name: Gifty Brown Age: 63 years : 1955 Gender: Female Ht: 61 in Wt: 163 lbs BSA: 1.81 m2 HR: 60 bpm BP: 149 / 84 mmHg Heart Rhythm: Sinus Rhythm Technical Quality: Good Exam Date: 05/04/2019 11:47 AM Exam Location: [facility] Patient Status: Inpatient Admit Date: 05/04/2019 Staff Ordering Physician: Ed Sullivan DO Community Relations Officer: Harish De La Torre RDCS Attending Provider: Ed Sullivan DO Referring Physician: Nate COLMENARES; Exam Type: CA echo limited Study Info Indications R07.9 - Chest pain, unspecified Limited two-dimensional transthoracic echocardiogram is performed. History/Risk Factors Chest pain; elevated trops, NSTEMI, Afib, HTN. Summary 1. Limited echo to assess for wall motion abnormality. 2. Left ventricular chamber dimension is normal. 3. Mid septum and mid anteroseptum is hypokinetic. 4. Left ventricular systolic function is normal, estimated at 50-55%. Left Ventricle Mid septum and mid anteroseptum is hypokinetic. Limited echo to assess for wall motion abnormality. Left ventricular chamber dimension is normal. Left ventricular systolic function is normal, estimated at 50-55%. Tricuspid Valve Name Value Normal TV Regurgitation Doppler TR Peak Velocity 257 cm/s TR Peak Gradient 27 mmHg Ventricles Name Value Normal LV Dimensions 2D/MM LVID Diastole (MM) 4.8 cm 3.8-5.2 LVID Systole (MM) 3.3 cm 2.2-3.5 LV Fractional Shortening/Ejection Fraction 2D/MM LV Fractional Shortening (MM) 27 % 27-45 LV EF (MM Teicholz) 53 % 54-74 LV Diastolic Volume (4C MOD) 93 ml LV EF (4C MOD) 52 % LV Diastolic Volume (2C MOD) 85 ml LV EF (2C MOD) 58 % LV Diastolic Volume (BP MOD) 90 ml 46-106 LV Diastolic Volume Index (BP MOD) 49 ml/m2 29-61 LV Systolic Volume (BP MOD) 40 ml 14-42 LV Systolic Volume Index (BP MOD) 22 ml/m2 8-24 LV EF (BP MOD) 56 % 54-74 LV Diastolic Length (4C) 8.1 cm LV Systolic Length (4C) 6.9 cm LV Stroke Volume (4C MOD) 48 ml Report Signatures
--- NOTE | ~2019-05-04 | XR_ITS ---
XR chest 2V DATE: 05/04/2019 03:23 INDICATION: Chest pain TECHNIQUE: PA and lateral views COMPARISON: 04/14/2021 view chest FINDINGS: Cardiomegaly. Aortic unfolding. No hilar or mediastinal enlargement. There may be minimal a telectasis at the lung bases; otherwise no pulmonary infiltrate or consolidation, pleural effusion or pulmonary vascular congestion or pneumothorax is detected. Surgical clips, right upper quadrant, consistent with cholecystectomy. IMPRESSION: Cardiomegaly Admitting minimal atelectasis at the lung bases; otherwise no active pulmonary disease or significant change since 04/14/2019 Reviewed, dictated and finalized at location A.
--- NOTE | 2019-05-04 02:46 | ED.CHESTPAIN ---
HPI - Chest Pain General Chief Complaint: Chest Pain Stated Complaint: CP Time Seen by Provider: 05/04/19 02:46 Source: patient and RN notes reviewed Mode of arrival: EMS Limitations: no limitations History of Present Illness HPI narrative: A 63 y/o female presents to the ED via EMS with with severe, squeezing, lt CP beginning earlier this morning. She states that she walked outside with her dog when she acutely developed severe, squeezing, lt CP that radiated down into her LUE. She reports some associated diaphoresis, so she took a 325mg Aspirin, before calling EMS. She notes that the Nitro spray she was given in route resolved her CP and diaphoresis. She also notes that she was recently dx with A-fib. She denies any SOB, fevers, N/V/D, or ABD pain. MD complaint: chest pain Onset (ago): minute(s) Timing of current episode: now resolved Onset: other (walking outside with her dog) Pain location: left chest Pain radiation: left arm Severity: severe Quality: other (squeezing) Relieving factors: nitroglycerin Associated symptoms: diaphoresis (resolved) Treatment prior to arrival: aspirin (325mg) and nitroglycerin Risk Factors Coronary artery disease risk factors: smoking history and hypertension Related Data Home Medications Medication Instructions Recorded Confirmed aspirin 325 mg tablet 325 mg PO DAILY 04/14/19 04/23/19 lysine 500 mg tablet 500 mg PO DAILY 04/14/19 04/23/19 magnesium gluconate 27 mg 27 mg PO BID 04/23/19 04/23/19 magnesium (500 mg) tablet omega-3 fatty acids 1,000 mg 1,000 mg PO DAILY 04/23/19 04/23/19 capsule Allergies Allergy/AdvReac Type Severity Reaction Status Date / Time Sulfa (Sulfonamide Allergy Severe Anaphylaxis Verified 05/04/19 02:52 Antibiotics) Review of Systems Review of Systems: All systems reviewed & are unremarkable except as noted in HPI and below Constitutional: Constitutional: Denies fever(s) and Reports other (diaphoresis - resolved) Cardiovascular: Cardiovascular: Reports chest pain (lt that radiates into her LUE - resolved) Respiratory: Respiratory: Denies dyspnea Gastrointestinal: Gastrointestinal: Denies abdominal pain, Denies diarrhea, Denies nausea and Denies vomiting PMFSH Past Medical History Medical History A-fib Hypertension Irregular heart rhythm Surgical History Surgical History Status post cholecystectomy Status post hysterectomy Status post tonsillectomy Family History Family History Sibling Family history of malignant neoplasm Family history of lupus erythematosus Hypertension Family history of arthritis Father Family history of dementia Hypertension Mother Hypertension Sibling Family history of arthritis Social History Social History (Updated 05/04/19 @ 03:05 by Israel Elena) Social History: The patient lives in [place], [place] with her significant other, Sander. She has a lab/boxer mix named Margaret that lives at home. 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 She has 2 biologic sons and 1 adopted son. She designates her eldest son, Christian Stockton, as her surrogate decision maker and she wishes to be a full code. She drinks alcohol very rarely and on social occasions. No drug use. Smoking status: Former smoker Tobacco type: cigarettes Alcohol intake: never Substance use: never Agree to blood products: Yes Exam Const: General: cooperative, no acute distress and alert Nutritional Appearance: well nourished Orientation/consciousness: patient oriented x3 Limitations: no limitations HENMT: Mouth: Yes lip normal and Yes moist mucous membranes Resp: Effort & Inspection: normal respiratory effort Auscultation: clear to auscultation bilaterally Cardio: Rate: regular rate Rhythm: regular rhythm GI
--- NOTE | 2019-05-04 02:50 | ECG_ITS ---
Measurements Intervals [place] Rate: 65 P: 43 CA: 158 QRS: -4 QRSD: 86 T: 36 QT: 411 QTc: 429 Interpretive Statements SINUS RHYTHM POSSIBLE LEFT ATRIAL ENLARGEMENT MINIMAL Q WAVES- INFERIOR LEADS NONSPECIFIC ST & T-WAVE ABNORMALITY- LATERAL LEADS BASELINE ARTIFACT- I, II, III, AVR, AVF, V6 BORDERLINE ECG Electronically Signed On 05-04-2019 7:12:04 CDT by Ed Sullivan D.O.
[2019-05-04] MEDS: NITROGLYCERIN OINTMENT 1 INCH DOSE TRANSDERM (03:00)
[2019-05-04 03:10] LABS: Basophils Absolute Auto 0.1 K/mm3 (0.0-0.1); Basophils Percent Auto 0.9 % (0.2-1.2); Eosinophils Absolute Auto 0.3 K/mm3 (0-0.3); Eosinophils Percent Auto 3.9 % (0-4.4); Hemoglobin 13.7 g/dL (12.0-15.0); Immature Granulocyte Absolute 0.02 K/mm3 (0.00-0.031); Immature Granulocyte Percent A 0.3 % (0-0.5); Lymphocytes Absolute Auto 2.43 K/mm3 (0.9-3.2); Lymphocytes Percent Auto 36.5 % (18.3-44.2); Mean Corpuscular HGB Conc 31.9 g/dl (32-36); Mean Corpuscular Hemoglobin 27.2 pg (26-34); Mean Corpuscular Volume 85.3 fl (80-100); Mean Platelet Volume 11.4 fl (7.4-10.4); Monocytes Absolute Auto 0.4 K/mm3 (0.1-0.6); Monocytes Percent Auto 6.6 % (2.6-8.5); Neutrophils Absolute Auto 3.4 K/mm3 (1.3-6.7); Neutrophils Percent Auto 51.8 % (45.5-73.1); Platelet Count Result 267 k/mm3 (150-375); Red Blood Count 5.04 M/mm3 (4.2-5.4); Red Cell Distribution Width 13.4 % (11.5-14.5); White Blood Count 6.7 K/mm3 (4.5-10.0)
[2019-05-04 03:17] LABS: Partial Thromboplastin Time 27.9 SECONDS (22.3-36.8); Prothrombin Time 12.7 Seconds (11.1-14.7)
[2019-05-04 03:19] LABS: Alanine Aminotransferase 27 U/L (4-35); Alkaline Phosphatase 71 U/L (38-126); Aspartate Amino Transferase 37 U/L (14-36); Bilirubin,Total 0.3 mg/dL (0.2-1.3); Blood Urea Nitrogen 19 mg/dL (7-17); Calcium 9.2 mg/dL (8.4-10.2); Carbon Dioxide 32 mmol/L (22-30); Chloride 100 mmol/L (98-107); Estimated Glomerular Filt Rate > 60; Glucose 87 mg/dL (65-105); Potassium 3.5 mmol/L (3.4-5.0); Sodium 138 mmol/L (137-145)
[2019-05-04 03:35] LABS: Troponin I 0.043 ng/mL (0.000-0.034)
[2019-05-04] MEDS: ENOXAPARIN 80 MG/0.8 ML SYRINGE 75 MG SUB-Q (05:11)
--- NOTE | 2019-05-04 05:25 | ADMGEN ---
This patient, Gifty Brown, was admitted to IMU Room 210-01. Patient/family oriented to hospital policies and general routines including ID bracelet, bed and alarms, visiting hours, pain management, procedures, bathroom and other care routines, personal items, smoking policy, room service/diet, and visiting hours. Valuables list has been completed. Information on how to activate the Rapid Response Team has been discussed. Patient/Family are encouraged to report perceived risks to care and to ask questions if they do not understand what they are told or what they should do.
--- NOTE | 2019-05-04 07:28 | ECG_ITS ---
Measurements Intervals [place] Rate: 63 P: 41 MT: 153 QRS: -5 QRSD: 84 T: -29 QT: 435 QTc: 446 Interpretive Statements SINUS RHYTHM POSSIBLE LEFT ATRIAL ENLARGEMENT POSSIBLE LEFT VENTRICULAR HYPERTROPHY BORDERLINE T WAVE ABNORMALITY- ANTEROLAT/INF LEADS BASELINE ARTIFACT- I, II, AVR BORDERLINE ECG Electronically Signed On 05-04-2019 9:14:52 CDT by Ed Sullivan D.O.
--- NOTE | 2019-05-04 08:06 | PM.IMHP ---
H&P: HPI History of Present Illness Chief complaint: Chest pain Narrative: Gifty Brown is a 63 year old female with history of recent new onset PAF on 04/15/19, hypertension who presents to hospital with chest pain. She reports she was sleeping then she walked her dog last night at 1 am as it needed to use restroom. When she returned to her deck she had abrupt onset chest pressure radiating down left arm that lasted 30 minutes. She called EMT who did an EKG and showed only nonspecific ST changes. They brought her to ED and she received nitro spray which relieved chest pain. No other associated symptoms. Her last echo on 04/15/19 showed normal EF 60-65% with no wall motion abnormality. Review of Systems Review of Systems: All systems reviewed & are unremarkable except as noted in HPI and below Constitutional: Constitutional: Denies chills and Denies fever(s) Cardiovascular: Cardiovascular: Reports as per HPI, Reports chest pain, Denies diaphoresis, Denies irregular heart rhythm, Denies leg edema, Denies lightheadedness and Denies dyspnea on exertion Respiratory: Respiratory: Reports as per HPI and Denies dyspnea on exertion Gastrointestinal: Gastrointestinal: Reports as per HPI and Denies abdominal pain Genitourinary: Genitourinary: Reports as per HPI Neurologic: Reports as per HPI, Denies dizziness and Denies syncope PMFSH Past Medical History Medical History A-fib Hypertension Irregular heart rhythm Surgical History Surgical History Status post cholecystectomy Status post hysterectomy Status post tonsillectomy Family History Family History Sibling Family history of malignant neoplasm Family history of lupus erythematosus Hypertension Family history of arthritis Father Family history of dementia Hypertension Mother Hypertension Sibling Family history of arthritis Social History Social History (Updated 05/04/19 @ 03:05 by Israel Elena) Social History: The patient lives in [place], [place] with her significant other, Sander. She has a lab/boxer mix named Margaret that lives at home. 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 She has 2 biologic sons and 1 adopted son. She designates her eldest son, Christian Stockton, as her surrogate decision maker and she wishes to be a full code. She drinks alcohol very rarely and on social occasions. No drug use. Smoking status: Never smoker Tobacco type: cigarettes Alcohol intake: never Substance use: never Agree to blood products: Yes Meds Home Medications and Allergies Home Medications Medication Instructions Recorded Confirmed Type aspirin 325 mg tablet 325 mg PO DAILY 04/14/19 05/04/19 History lysine 500 mg tablet 500 mg PO DAILY 04/14/19 05/04/19 History losartan 25 mg PO QAM #30 tablet 04/17/19 05/04/19 Rx omega-3 fatty acids 1,000 mg 1,000 mg PO DAILY 04/23/19 05/04/19 History capsule sotalol 80 mg tablet 40 mg PO BID #30 tablet 04/23/19 05/04/19 Rx magnesium 500 mg PO DAILY 05/04/19 05/04/19 History Allergies Allergy/AdvReac Type Severity Reaction Status Date / Time Sulfa (Sulfonamide Allergy Severe Anaphylaxis Verified 05/04/19 02:52 Antibiotics) Vital Signs Vital Signs - 24 hr 05/04/19 02:46 05/04/19 04:16 05/04/19 05:14 Temperature 97.1 F L Pulse Rate 74 67 66 Respiratory Rate 18 18 18 Blood Pressure 166/93 H 138/76 140/72 Pulse Oximetry 99 97 98 05/04/19 05:17 05/04/19 05:33 05/04/19 05:49 Temperature 98.2 F Pulse Rate 67 72 64 Respiratory Rate 18 16 Blood Pressure 138/76 148/71 H Pulse Oximetry 98 98 05/04/19 06:00 Temperature Pulse Rate 66 Respiratory Rate Blood Pressure Pulse Oximetry Exam Const: General: cooperative, healthy appearing and comfortable Ca
[2019-05-04] MEDS: SOTALOL HCL 40 MG TABLET PO ×2 (08:27→19:42)
[2019-05-04] MEDS: LOSARTAN POTASSIUM 25 MG TABLET PO (08:27)
--- NOTE | 2019-05-04 08:43 | PM.CNCAR ---
Assessment and Plan Additional Plan 63-year-old female with: Episode of nitrate responsive chest pain in the middle of the night while she was out with her dog. The ECG shows some inferior Q-waves and some nonspecific T-wave abnormalities but no significant ST segment abnormalities. Troponin level has risen modestly following this event prompting the recommendation to perform a coronary angiogram. Patient also has a history of paroxysmal AFib with an episode of what sounds like presyncope related to atrial fibrillation that was treated medically she is currently in sinus rhythm on sotalol and is also being treated with aspirin. Echocardiogram recently demonstrated normal LV systolic function, some mitral valve regurgitation and a dilated left atrium Will proceed with left heart catheterization today which seems reasonable given her symptoms of chest pain and troponin rise. Further recommendations will be pending completion of that angiogram Alfonso Maria MD [facility] History of Present Illness History of Present Illness Consult date/time: Date of service: 05/04/19 08:43 Consult reason: chest pain Reason For Visit: Chest pain Narrative: This is a 63-year-old woman who I have not seen previously. I am seeing her this morning at the request of Dr. Sullivan to perform a coronary angiogram. The patient is known to him with a history of paroxysmal atrial fibrillation. She states she has not really had any known history of cardiac problems before this and came to the hospital here a couple of weeks ago with symptoms of severe weakness and an episode of near syncope that occurred while she was in the office. She works for [place] here at [facility]. She really did not have the sense of tachycardia or palpitations but was sent to the emergency room and her evaluation showed AFib with rapid ventricular response. She describes being sedated and actually cardioverted electrically in the emergency room which did not succeed and she was then admitted to the hospital. She says she was treated with intravenous diltiazem and she was started on oral antiarrhythmic therapy in the form of sotalol. By her description she eventually medically root recurrent converted into sinus rhythm she was seen by Dr. Sullivan for that reason as a new patient at that time and was also started on aspirin treatment. An echocardiogram was done which appears to have shown normal left ventricular systolic function, mild to moderate mitral valve regurgitation and significant left atrial dilation. The patient was feeling reasonably well and then she got up in the middle of the night with her dog had to go out in the backyard at about 1:00 a.m.. The dog was outside and while she was standing there she started to notice the onset of left precordial chest pain she describes this as a dull, squeezing sensation with radiation into the left arm. She got the dog back in the house and sat down for a while thinking she might of had some trouble with gas. After while she decided to call 911 and they came to the home and obviously transported her here to the emergency department. By her description she was given nitro lingual spray in the ambulance which alleviated her symptoms. Her electrocardiogram here at the hospital showed sinus rhythm with a nonspecific T-wave 5 changes. Her troponin levels were normal and have risen slightly to 0.3. Because of the rise in her troponin reopen consulted to see her and she seems to be comfortable now. She does not have a prior history of hypertension diabetes or dyslipidemia she does not smoke. She does not have a family history of probable and coronary artery disease. Review of Systems Constitutional: Constitutional: Reports no additional constitutional complaints Eyes: Eyes: Reports no additional eye complaints ENT: Reports system reviewed and no additional complaints, except as documented Cardiovascular: Cardiovascular: Reports as per HPI
[2019-05-04] MEDS: ASPIRIN 81 MG CHEWABLE TABLET PO (08:44)
[2019-05-04 09:15] LABS: Cholesterol 200 mg/dL (0-200); HDL Direct 48 mg/dL; Triglycerides 144 mg/dL (<150)
--- NOTE | 2019-05-04 09:20 | PC.NURSE ---
Pt to phlebotomist lab assistant via stretcher.
--- NOTE | 2019-05-04 09:24 | WPDMODSED ---
Moderate Sedation Note-Pt Data Patient Data Diagnosis: Episode of nitrate responsive chest pain with modest troponin elevation history of recent episode of atrial fibrillation, currently in sinus rhythm Present Complaint: no complaints this morning, episode of nitrate responsive chest pain at 1:00 a.m. Procedure to be performed/Plan: left heart catheterization \ Allergies Allergy/AdvReac Type Severity Reaction Status Date / Time Sulfa (Sulfonamide Allergy Severe Anaphylaxis Verified 05/04/19 02:52 Antibiotics) Home Medications Medication Instructions Recorded Confirmed Type aspirin 325 mg tablet 325 mg PO DAILY 04/14/19 05/04/19 History lysine 500 mg tablet 500 mg PO DAILY 04/14/19 05/04/19 History losartan 25 mg PO QAM #30 tablet 04/17/19 05/04/19 Rx omega-3 fatty acids 1,000 mg 1,000 mg PO DAILY 04/23/19 05/04/19 History capsule sotalol 80 mg tablet 40 mg PO BID #30 tablet 04/23/19 05/04/19 Rx aspirin [Aspir-81] 81 mg PO HS 05/04/19 05/04/19 History magnesium 500 mg PO DAILY 05/04/19 05/04/19 History Current Medications: Active Medications Acetaminophen (Tylenol Tablet) 650 mg PO Q4H PRN PRN Reason: Mild Pain (1-3) or Fever Aspirin (Aspirin Chewable) 81 mg PO DAILY@0800 [facility] Last Admin: 05/04/19 08:44 Dose: 81 mg Documented by: Aspirin (Aspirin) 325 mg PO DAILY [facility] Last Admin: 05/04/19 08:44 Dose: Not Given Documented by: Fish Oil (Lovaza) 1 gm PO DAILY [facility] Losartan Potassium (Cozaar) 25 mg PO QAM [facility] Last Admin: 05/04/19 08:27 Dose: 25 mg Documented by: Magnesium Gluconate (Magonate) 27 mg PO DAILY [facility] Stop: 06/03/19 09:01 Nitroglycerin (Nitrostat Subl 0.4 Mg (1/150)) 0.4 mg SUBLINGUAL Q5MIN PRN PRN Reason: Chest Pain Sotalol HCl (Betapace) 40 mg PO Q12HR [facility] Last Admin: 05/04/19 08:27 Dose: 40 mg Documented by: Sedation/Anesthesia: No previous sedation/anesthesia problems (including family history). [facility] Past Medical History Medical History A-fib Hypertension Irregular heart rhythm Surgical History Surgical History Status post cholecystectomy Status post hysterectomy Status post tonsillectomy Family History Family History Sibling Family history of malignant neoplasm Family history of lupus erythematosus Hypertension Family history of arthritis Father Family history of dementia Hypertension Mother Hypertension Sibling Family history of arthritis Social History Social History (Updated 05/04/19 @ 03:05 by Israel Elena) Social History: The patient lives in [place], [place] with her significant other, Sander. She has a lab/boxer mix named Margaret that lives at home. 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 She has 2 biologic sons and 1 adopted son. She designates her eldest son, Christian Stockton, as her surrogate decision maker and she wishes to be a full code. She drinks alcohol very rarely and on social occasions. No drug use. Smoking status: Never smoker Tobacco type: cigarettes Alcohol intake: never Substance use: never Agree to blood products: Yes Mod Sed Physical Exam Physical Exam Pre Procedural Exam: Normal: Appearance, Neck, Throat, Airway, Lungs, Heart Size, Heart Rate, Heart Rhythm, Neuro Exam and Extremities Hours since solid foods: 12 Hours since liquid intake: 12 Internal Medicine - PN: Obj Da Vital Signs Vital Signs: Vital Signs - 24 hr 05/04/19 02:46 05/04/19 04:16 05/04/19 05:14 Temperature 36.2 C L Pulse Rate 74 67 66 Respiratory Rate 18 18 18 Blood Pressure 166/93 H 138/76 140/72 Pulse Oximetry 99 97 98 05/04/19 05:17 05/04/19 05:33 05/04/19 05:49 Temperature 36.8 C Pulse Rate 67 72 64 Respiratory Rate 18 16 Blood Pressure 138/76 148/71 H Pulse Oximetry 98 98 05/04/19 06:
[2019-05-04 09:26] LABS: LDL Cholesterol Direct 125 mg/dL
--- NOTE | 2019-05-04 10:14 | WPDCARDPROC ---
Cardiac Cath Procedure Note Date of procedure:: 05/04/19 Performing physician:: Alfonso Maria MD Indication:: Left heart catheterization with left ventriculography and coronary angiography Brief clinical history:: this is a 63-year-old patient with a history of recently diagnosed paroxysmal atrial fibrillation presented to the hospital with an episode of nitrate responsive chest pain. The ECG did not show any acute changes of injury although she does have some inferior Q-waves. The Troponin levels have risen modestly prompting recommendation for angiography. Procedure Procedure performed:: left ventriculography coronary angiography Sedation/Medication given:: fentanyl 50 mg Versed 2 mg case start time 9:50 a.m. case end time 10:11 a.m. sedation provided by Gordy Andrade RN, trained observer Access site:: right femoral artery Estimated blood loss:: 15-20 cc Procedure note:: patient was brought to the cardiac catheterization lab in the postabsorptive state the right femoral triangle was prepped draped in the usual fashion. Anesthesia was provided with 1% lidocaine infiltrated locally. Modified Seldinger technique the femoral artery was punctured and a 5 Canadian vascular sheath was placed. Following this left heart catheterization was carried out. A 5 Canadian angle pigtail catheter was used to document left-sided hemodynamics and injected LV g in the CRYSTAL projection. Following this standard FL4 catheter was placed into the ascending aorta and was unable to be engaged the left main is it had a very superior takeoff. A FL 3.5 catheter was used to engage inject the left coronary artery. Following this a JR4 catheter was used to engage inject the right coronary. Cineangiograms were then reviewed and the case was terminated. An angiogram was done of the femoral artery through the sheath after which was decided to remove the sheath with direct manual compression in the holding area. Procedure was well tolerated there were no apparent complications and she left the labor training manager with no evidence of a groin hematoma. Findings:: The central aortic pressure is 1 60/86 left ventricle is 160/0 end-diastolic pressure 11. There is no significant gradient seen on pullback across the aortic valve. The left ventricle is of normal size there is a discrete region of akinesis/dyskinesis in the diaphragmatic segment, apical inferior segment. The remainder of the LV contracts well the global ejection fraction appears to be about 50% by visual estimation the left main coronary artery has a superior takeoff is medium in caliber and is nicely patent the LAD is a medium caliber artery extending down to around the apex the LAD has minimal luminal irregularity in the proximal 3rd but no more than 20% luminal stenosis. The circumflex is a moderate caliber artery giving rise to a very small 1st OM branch and then a larger 2nd OM. The circumflex has modest plaquing of less than 20% stenosis in the midportion of the trunk in the AV groove. There is no flow-limiting disease identified. The right coronary artery is large in caliber and dominant to the posterior circulation there is mild plaquing in the proximal right coronary artery of no more than about 30% stenosis. There is ANGIE 3 flow throughout the vessel there is no evidence of flow-limiting disease. Conclusion:: 1. Episode of nitrate responsive chest pain with troponin elevation, discrete area akinesis and the diaphragmatic segment as detailed above global ejection fraction about 50% 2. very modest coronary atherosclerosis as detailed above with no flow-limiting disease identified 3. would entertain the possibility of coronary spasm explaining this event Alfonso Maria MD [facility]
--- NOTE | 2019-05-04 10:49 | SUR.PHASEII ---
1025 patient arrives to [facility] room 3 Post [facility] with Dr. Olmos, family at bedside, instructed to restrictions and bedrest. 5 Fr sheath remains in RFA, no bleeding or hematoma noted, will continue to monitor. 1032 5 Fr sheath pulled per protocol by Shahab JI, firm manual pressure applied, no bleeding or hematoma noted, will continue to monitor.
--- NOTE | 2019-05-04 12:16 | PC.NURSE ---
Pt returned from r and d lab technician via stretcher. Family at bedside
[2019-05-04] MEDS: OMEGA 3 POLYUNSAT FATTY ACIDS 1 GM CAP PO (12:22)
[2019-05-04 17:11] LABS: Magnesium 1.9 mg/dL (1.6-2.3)
[2019-05-04] MEDS: POTASSIUM CHLORIDE 20 MEQ TABLET 40 MEQ PO (17:45)
[2019-05-04] MEDS: MAGNESIUM SULF 1 GM/D5W 100 ML 1 GM/100 ML BAG IVPB (17:48)
[2019-05-04] MEDS: ACETAMINOPHEN 325 MG TABLET 650 MG PO (19:42)
[2019-05-05] VITALS (9 sets, daily range): BP systolic 143–146; BP diastolic 73–81; PULSE 60–75; RESP 16–20; TEMP 36.2–36.6; O2SAT 95–98
[2019-05-05 05:26] LABS: Blood Urea Nitrogen 7 mg/dL (7-17); Calcium 8.9 mg/dL (8.4-10.2); Carbon Dioxide 27 mmol/L (22-30); Chloride 108 mmol/L (98-107); Estimated CRCL calculation 75 ml/min; Estimated Glomerular Filt Rate > 60; Glucose 100 mg/dL (65-105); Potassium 3.4 mmol/L (3.4-5.0); Sodium 137 mmol/L (137-145)
--- NOTE | 2019-05-05 08:09 | PM.PNCARD ---
Progress Note: A&P Assessment and Plan (1) Elevated troponin: Code(s): R79.89 - Other specified abnormal findings of blood chemistry Status: Acute Assessment and Plan: Could be related to Coronary vasospasms or Takotsubo syndrome. Mid septum/mid anteroseptum is severely hypokinetic to akinetic on echo. Check troponin this AM to see if it peaked. (2) PAF (paroxysmal atrial fibrillation): Code(s): I48.0 - Paroxysmal atrial fibrillation Status: Acute Assessment and Plan: On Sotalol and Aspirin 325 mg daily with [id number] 2. (3) Hypertension: Code(s): I10 - Essential (primary) hypertension Status: Acute Assessment and Plan: Mildly high. Increase Losartan 100 mg daily which will help with low normal potassium. (4) CAD (coronary artery disease): Code(s): I25.10 - Atherosclerotic heart disease of habematolel coronary artery without angina pectoris Status: Acute Assessment and Plan: Mild and non-obstructive. Refusing statin at this time, and she wants to lower cholesterol with lifestyle changes. (5) NSVT (nonsustained ventricular tachycardia): Code(s): I47.2 - Ventricular tachycardia Status: Acute Assessment and Plan: Mag 1.8, given Mag Abdulaziz yesterday. KCl 40 meq x1. 30 day event monitor upon discharge. Increase Sotalol 80 mg BID. F/U with me in 1 week. Subjective Date/time seen: 05/05/19 08:09 Denies chest pain or sob. Telemetry at 16:39 on 05/05/19 showed 12 beat NSVT. She was given Mag Abdulaziz and KCl. Had ventricular bigeminy this morning. Right groin cardiac cath access site is without pain or tenderness or bleeding. Exam Const: General: comfortable and no acute distress Neck: Neck: no JVD Carotids: no bruits Resp: Auscultation: clear to auscultation bilaterally, no crackles, no rales, no rhonchi and no wheezes Cardio: Rate: regular rate Rhythm: regular rhythm Heart sounds: no murmurs GI: Inspection: non-distended Neuro: Speech: normal speech Extrem: Right lower extremity: no edema Left lower extremity: no edema Objective Data Vital Signs Vital Signs: Vital Signs - 24 hr 05/04/19 08:27 05/04/19 08:49 05/04/19 10:25 Temperature 97.0 F L 97.6 F Pulse Rate 67 65 67 Respiratory Rate 18 15 Blood Pressure 158/90 H 150/82 H Pulse Oximetry 97 96 05/04/19 10:30 05/04/19 10:45 05/04/19 11:00 Temperature Pulse Rate 67 60 59 L Respiratory Rate 19 15 12 Blood Pressure 140/71 161/89 H 144/84 H Pulse Oximetry 96 95 96 05/04/19 11:15 05/04/19 11:30 05/04/19 11:45 Temperature Pulse Rate 64 65 63 Respiratory Rate 12 15 17 Blood Pressure 150/86 H 149/84 H 156/89 H Pulse Oximetry 96 98 99 05/04/19 12:00 05/04/19 12:15 05/04/19 12:30 Temperature 96.3 F L Pulse Rate 62 63 66 Respiratory Rate 16 20 Blood Pressure 161/88 H 162/80 H Pulse Oximetry 99 100 05/04/19 14:00 05/04/19 14:19 05/04/19 16:00 Temperature 97.1 F L 98.9 F Pulse Rate 74 71 60 Respiratory Rate 20 16 Blood Pressure 151/79 H 148/75 H Pulse Oximetry 100 98 05/04/19 18:00 05/04/19 19:41 05/04/19 19:42 Temperature 98.0 F Pulse Rate 69 67 70 Respiratory Rate 16 Blood Pressure 154/73 H Pulse Oximetry 99 05/04/19 20:00 05/04/19 22:00 05/04/19 23:43 Temperature 97.9 F Pulse Rate 68 67 69 Respiratory Rate 20 Blood Pressure 146/72 H Pulse Oximetry 99 05/05/19 00:00 05/05/19 02:00 05/05/19 04:00 Temperature 97.8 F Pulse Rate 71 69 67 Respiratory Rate 20 Blood Pressure 143/81 H Pulse Oximetry 95 05/05/19 06:00 Temperature Pulse Rate 72 Respiratory Rate Blood Pressure Pulse Oximetry Intake/Output Intake/Output: Intake & Output 05/02/19 05/03/19 05/04/19 05/05/19 23:59 23:59 23:59 23:59 Intake Total 1360 Output Total 1000 800 Balance 360 -800 Meds/Results Medications: Active Medications Generic Name Dose Route Start Last Admin Trade Name Freq
--- NOTE | 2019-05-05 09:08 | PM.EVENT ---
Event Note Event Note Event Note: Right groin site check post cardiac cath 05/04/2019: No swelling or bleeding. Scant ecchymosis on lateral edge. No femoral bruit. Distal pulse intact. Reviewed activity restrictions. May return to work on Saturday, May 11, 2019
[2019-05-05] MEDS: POTASSIUM CHLORIDE 20 MEQ TABLET 40 MEQ PO (09:13)
[2019-05-05] MEDS: OMEGA 3 POLYUNSAT FATTY ACIDS 1 GM CAP PO (09:13)
[2019-05-05] MEDS: ASPIRIN 325 MG TABLET PO (09:14)
[2019-05-05] MEDS: LOSARTAN POTASSIUM 100 MG TABLET PO (09:14)
[2019-05-05] MEDS: SOTALOL HCL 80 MG TABLET PO (09:25)
[2019-05-05] MEDS: ACETAMINOPHEN 325 MG TABLET 650 MG PO (09:26)
--- NOTE | 2019-05-05 13:06 | PM.DS ---
DS: Diagnosis Admitting Diagnosis Admitting Diagnosis: Chest pain, unspecified 63 yr old woman admitted for chest pain and found to have elevated troponins peaked at 3. She had cardiac cath with Dr. Maria which showed non-obstructive mild CAD. Her echo showed septal and anteroseptal wall hypokinesis/akinesis. She had 12 beat run of NSVT. Given Mag rider and KCl for mildly low levels. Losartan increase to 100 mg daily and Sotalol increased to 80 mg BID. Denies any more chest pain. Denies sob. She will be going home on 30 day event monitor to assess ventricular arrhythmias. Her diagnosis is elevated troponin due to either Takotsubo syndrome or coronary vasopasms. She will f/u with me in 1 week. DS: Summary Time Spent with Patient Time attestation: Total time spent providing and/or coordinating discharge services: DS: Data Data Completed and Pending Labs on day of discharge: Labs from last 24 hours 05/05/19 05/05/19 05/05/19 11:47 08:04 04:26 Sodium 137 Potassium 3.4 Chloride 108 H Carbon Dioxide 27 BUN 7 D Creatinine 0.60 L Estim Creat Clear Calc 75 Estimated GFR > 60 Glucose 100 Calcium 8.9 Magnesium Troponin I 2.930 H* 3.040 H* 05/04/19 16:54 Sodium Potassium Chloride Carbon Dioxide BUN Creatinine Estim Creat Clear Calc Estimated GFR Glucose Calcium Magnesium 1.9 Troponin I Discharge Plan Discharge Attending physician on discharge: Ed Sullivan Consulting providers: Alfonso Maria Discharging Clinician: Ed Sullivan Patient Disposition: Home, Self-Care Activity: other - see discharge instructions Diet: heart healthy Wound Care Instructions: other - see discharge instructions Discharge Instructions: CARDIOLOGY DISCHARGE INSTRUCTIONS: Post cardiac catheterization ACTIVITY: No driving for 24 hours. No lifting, pushing or pulling more than 10 pounds for 1 week. No strenuous exercise or activity for 1 week. May shower but no tub baths or swimming pool for 1 week. Avoid commercial hot tubs. They are too hot. May return to work on Saturday, May 11, 2019 with any other restrictions per Dr Sullivan FOLLOW-UP: With Dr Sullivan 1-2 weeks WOUND CARE: Keep site covered with dry Band Aid today. Remove Band aid on a Saturday and leave site open to air. Observe for redness,swelling, drainage or bleeding. Wash gently and pat dry when showering. Patient Instructions: Antibiotic Form, Chest Pain (DC) Stand Alone Forms: General Discharge Information Follow-up/Referrals: Ed Sullivan DO [Physician] - 05/12/19 (About 1 week.) Discharge Medications: New losartan 100 mg Tablet 100 mg PO QAM Qty: 30 RF: 5 sotalol 80 mg Tablet 80 mg PO Q12HR Qty: 60 RF: 5 Continued lysine [L-Lysine] 500 mg tablet 500 mg PO DAILY RF: 0 aspirin 325 mg tablet 325 mg PO DAILY RF: 0 omega-3 fatty acids [Fish Oil Concentrate] 1,000 mg capsule 1,000 mg PO DAILY RF: 0 magnesium 250 mg Tablet 500 mg PO DAILY RF: 0 Discontinued sotalol 80 mg tablet 40 mg PO BID Qty: 30 RF: 5 losartan 25 mg Tablet 25 mg PO QAM Qty: 30 RF: 0 aspirin [Aspir-81] 81 mg Tablet,Delayed Release (Dr/Ec) 81 mg PO HS RF: 0 Date of admission: 05/04/19 04:42 Primary Care Provider: Jay Jay Sidhu Admitting Provider: Ed Sullivan Attending physician on admission: Ed Sullivan Condition: Stable
== END 2019-05-05 14:33 | disposition home or self-care (01) ==
LOC: ANHED 04:50 → ANHIMU 05:11
PROVIDERS: Specialist; Admitting Provider Internal Medicine Cardiovascular Disease; Emergency Provider Emergency Medicine; PCP Physician Assistant; Visit Provider Internal Medicine Cardiovascular Disease
PROC: 4A023N7 Measurement of Cardiac Sampling and Pressure, Left Heart, Percutaneous Approach (ICD-10-PCS; CPT 93452; principal; 2019-05-04 07:30)
DX: I25.10 Atherosclerotic heart disease of native coronary artery without angina pectoris (principal); R79.89 Other specified abnormal findings of blood chemistry; I47.2 Ventricular tachycardia; I48.0 Paroxysmal atrial fibrillation; I10 Essential (primary) hypertension; Z79.899 Other long term (current) drug therapy
CPT/HCPCS: 36415; 71046; 80048; 80053; 80061; 83735; 84484; 85025; 85610; 85730; 93005; 93308; 93458; 96372; 96374; 99285; A9270; C1887; C1894; G0378; J1644; J1650; J2250; J3010; J3475; J7040

== ENCOUNTER 2019-06-13 20:22 | Emergency (ER) | payer OTHER, SELFPAY ==
[2019-06-13] VITALS (7 sets, daily range): BP systolic 131–178; BP diastolic 72–107; PULSE 53–67; RESP 16–19; TEMP 36.3; O2SAT 95–100
--- NOTE | ~2019-06-13 | CT_ITS ---
EXAMINATION: CT brain wo con DATE: 06/13/2019 21:13 INDICATION: Dizziness. Started Xarelto today TECHNIQUE: Computed tomography (CT) of the head was performed without intravenous contrast. The mA wa s adjusted according to patient size. Iterative reconstruction technique was employed. Exam dose: 60 5.33 mGy-cm total exam DLP. COMPARISON: None FINDINGS: No intracranial mass lesion or hemorrhage or cerebrovascular accident. Normal ventricular s ize. No midline shift or mass effects. No subdural or epidural hematoma. Bilateral carotid siphon internal carotid artery calcifications. No fracture or bone destruction of the cranial vault. Included paranasal sinuses and mastoid air cells are normally developed and aerated. IMPRESSION: Cerebral atherosclerosis No acute intracranial finding Reviewed, dictated and finalized at [facility] Reviewed, dictated and finalized at [facility].
--- NOTE | 2019-06-13 20:41 | ECG_ITS ---
Measurements Intervals [place] Rate: 58 P: 50 HI: 144 QRS: -3 QRSD: 82 T: -31 QT: 452 QTc: 445 Interpretive Statements SINUS BRADYCARDIA VENTRICULAR PREMATURE COMPLEX NONSPECIFIC ST & T-WAVE ABNORMALITY- ANT/INF LEADS BASELINE ARTIFACT- I, II, III, AVL, AVF, V1 BORDERLINE ECG Electronically Signed On 06-14-2019 8:29:04 CDT by Ed Sullivan D.O.
--- NOTE | 2019-06-13 20:44 | ED.GENADULT ---
HPI - General Adult General Chief complaint: Unspecified Stated complaint: Started on xarelto today, disoriented Time Seen by Provider: 06/13/19 20:27 Source: patient Mode of arrival: ambulatory Limitations: no limitations History of Present Illness HPI narrative: Patient is a 63-year-old female who presents to the emergency department with complaint of dizziness. Patient had taken her first dose of Xarelto this evening secondary to being diagnosed with paroxysmal atrial fibrillation. Recent 30-day event monitor showed she goes in and out of atrial fibrillation accounting for approximately 7% of her rhythm. Patient notes roughly an hour after taking her medication she had feeling of burning and ringing in her ears accompanied by dizziness and not feeling like herself. Patient denies having any chest pain or shortness of breath. Patient is currently on sotalol for her atrial fibrillation. Patient has an appointment with Dr. Maria within the next week or two. Patient states her symptoms are feeling much better, though she still does not quite feel herself. Her symptoms lasted perhaps 45 minutes. She denies any headache, extremity numbness, or extremity weakness. MD complaint: dizziness Onset (ago): minute(s) Related Data Home Medications Medication Instructions Recorded Confirmed aspirin 325 mg tablet 325 mg PO DAILY 04/14/19 05/04/19 lysine 500 mg tablet 500 mg PO DAILY 04/14/19 05/04/19 omega-3 fatty acids 1,000 mg 1,000 mg PO DAILY 04/23/19 05/04/19 capsule magnesium 500 mg PO DAILY 05/04/19 05/04/19 Allergies Allergy/AdvReac Type Severity Reaction Status Date / Time Sulfa (Sulfonamide Allergy Severe Anaphylaxis Verified 05/04/19 02:52 Antibiotics) Review of Systems Review of Systems: All systems reviewed & are unremarkable except as noted in HPI and below Cardiovascular: Cardiovascular: Denies chest pain Respiratory: Respiratory: Denies cough and Denies dyspnea Neurologic: Reports dizziness, Denies headache(s), Denies focal weakness, Denies numbness and Denies weakness [facility] Past Medical History Medical History (Updated 06/13/19 @ 22:08 by Ava Sewell MD) CAD (coronary artery disease) Mild, not requiring intervention Hypertension NSTEMI (non-ST elevated myocardial infarction) NSVT (nonsustained ventricular tachycardia) PAF (paroxysmal atrial fibrillation) Surgical History Surgical History Status post cholecystectomy Status post hysterectomy Status post tonsillectomy Social History Social History Social History: The patient lives in [place], [place] with her significant other, Sander. She has a lab/boxer mix named Margaret that lives at home. 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 She has 2 biologic sons and 1 adopted son. She designates her eldest son, Christian Stockton, as her surrogate decision maker and she wishes to be a full code. She drinks alcohol very rarely and on social occasions. No drug use. Smoking status: Never smoker Tobacco type: cigarettes Alcohol intake: never Substance use: never Gender identity (if verbalized by the patient): Female Agree to blood products: Yes Exam Const: General: cooperative, no acute distress and alert Nutritional Appearance: well nourished Orientation/consciousness: patient oriented x3 Limitations: no limitations HENMT: Mouth: Yes lip normal and Yes moist mucous membranes Resp: Effort & Inspection: normal respiratory effort Auscultation: clear to auscultation bilaterally Cardio: Rate: bradycardic Rhythm: regular rhythm and abnormal rhythm with ectopic beats GI: GI Palp: Yes Soft to palpation and No Tenderness to palpation present (GI) Auscultation: normal bowel sounds Skin: General skin exam: normal color Neuro: Gener
[2019-06-13 21:13] LABS: Basophils Absolute Auto 0.1 K/mm3 (0.0-0.1); Basophils Percent Auto 0.6 % (0.2-1.2); Eosinophils Absolute Auto 0.3 K/mm3 (0-0.3); Eosinophils Percent Auto 2.6 % (0-4.4); Hematocrit 44.1 % (37.0-47.0); Hemoglobin 14.2 g/dL (12.0-15.0); Immature Granulocyte Absolute 0.03 K/mm3 (0.00-0.031); Immature Granulocyte Percent A 0.3 % (0-0.5); Lymphocytes Absolute Auto 3.36 K/mm3 (0.9-3.2); Lymphocytes Percent Auto 33.7 % (18.3-44.2); Mean Corpuscular HGB Conc 32.2 g/dl (32-36); Mean Corpuscular Hemoglobin 27.8 pg (26-34); Mean Corpuscular Volume 86.3 fl (80-100); Mean Platelet Volume 11.5 fl (7.4-10.4); Monocytes Absolute Auto 0.7 K/mm3 (0.1-0.6); Monocytes Percent Auto 6.9 % (2.6-8.5); Neutrophils Absolute Auto 5.6 K/mm3 (1.3-6.7); Neutrophils Percent Auto 55.9 % (45.5-73.1); Platelet Count Result 311 k/mm3 (150-375); Red Blood Count 5.11 M/mm3 (4.2-5.4); Red Cell Distribution Width 13.8 % (11.5-14.5)
[2019-06-13 21:24] LABS: Alanine Aminotransferase 31 U/L (4-35); Albumin Level 4.6 g/dL (3.5-5.1); Alkaline Phosphatase 68 U/L (38-126); Aspartate Amino Transferase 34 U/L (14-36); Bilirubin,Total 0.4 mg/dL (0.2-1.3); Blood Urea Nitrogen 20 mg/dL (7-17); Calcium 9.6 mg/dL (8.4-10.2); Carbon Dioxide 30 mmol/L (22-30); Chloride 101 mmol/L (98-107); Estimated Glomerular Filt Rate > 60; Glucose 95 mg/dL (65-105); Potassium 3.9 mmol/L (3.4-5.0); Sodium 140 mmol/L (137-145)
[2019-06-13 21:30] LABS: Add Urine Microscopic? YES; Appearance Urine Clear (Clear); Bacteria Urine Trace /hpf; Bilirubin Urine Negative (Negative); Blood Urine 1+ (Negative); Color Urine Colorless (Yellow); Glucose Urine UA Negative (Negative); Ketones Urine Negative (Negative); Leukocyte Esterase Ur Negative LEU/UL (Negative); Mucus Urine Rare /lpf; Nitrate Urine Negative (Negative); Protein Urine Negative (Negative); Specific Grav Ur 1.008 (1.001-1.035); Squamous Epithelial Cell Urine Rare /hpf (Few); Urobilinogen Urine Negative mg/dL (<2.0); WBC Urine 0-3 /hpf
== END 2019-06-13 22:15 | disposition home or self-care (01) ==
PROVIDERS: Emergency Provider Emergency Medicine; PCP Physician Assistant
DX: R42 Dizziness and giddiness (principal); I25.10 Atherosclerotic heart disease of native coronary artery without angina pectoris; I10 Essential (primary) hypertension; I25.2 Old myocardial infarction; I48.0 Paroxysmal atrial fibrillation; Z79.82 Long term (current) use of aspirin; I49.3 Ventricular premature depolarization; R94.31 Abnormal electrocardiogram [ECG] [EKG]
CPT/HCPCS: 36415; 70450; 80053; 81001; 85025; 93005; 99284

== ENCOUNTER 2019-09-14 00:34 | Observation (INO) | payer OTHER, SELFPAY ==
[2019-09-14] VITALS (15 sets, daily range): BP systolic 105–148; BP diastolic 63–101; PULSE 56–131; RESP 12–20; TEMP 36.5–36.7; O2SAT 96–100; BMI 27.7
--- NOTE | ~2019-09-14 | XR_ITS ---
EXAMINATION: XR chest 2V EXAM DATE: 09/14/2019 01:19 INDICATION: Heart palpitations. History atrial fibrillation. TECHNIQUE: Portable AP frontal chest x-ray was obtained. Comparison is made to prior examination from 05/04/2019. FINDINGS: The lungs are clear. There are no pleural effusions. The heart is upper limits of normal in size. There is no pneumothorax suspected. The bones and soft tissues are unremarkable. There a re cholecystectomy clips. IMPRESSION: No acute cardiopulmonary findings. Reviewed, dictated and finalized at [facility].
--- NOTE | 2019-09-14 00:45 | ECG_ITS ---
Measurements Intervals [place] Rate: 146 P: SD: 0 QRS: 30 QRSD: 89 T: 26 QT: 295 QTc: 461 Interpretive Statements ATRIAL FIBRILLATION WITH RAPID VENTRICULAR RESPONSE BORDERLINE ST ABNORMALITY- DIFFUSE LEADS BASELINE ARTIFACT- I, II, III, AVR, AVL, AVF ABNORMAL ECG Electronically Signed On 09-14-2019 6:57:45 CDT by Ed Sullivan D.O.
[2019-09-14 01:16] LABS: Basophils Absolute Auto 0.1 K/mm3 (0.0-0.1); Basophils Percent Auto 0.7 % (0.2-1.2); Eosinophils Absolute Auto 0.3 K/mm3 (0-0.3); Hematocrit 47.9 % (37.0-47.0); Hemoglobin 16.1 g/dL (12.0-15.0); Immature Granulocyte Absolute 0.03 K/mm3 (0.00-0.031); Immature Granulocyte Percent A 0.3 % (0-0.5); Lymphocytes Absolute Auto 3.01 K/mm3 (0.9-3.2); Lymphocytes Percent Auto 31.3 % (18.3-44.2); Mean Corpuscular HGB Conc 33.6 g/dl (32-36); Mean Corpuscular Hemoglobin 29.3 pg (26-34); Mean Corpuscular Volume 87.1 fl (80-100); Mean Platelet Volume 11.2 fl (7.4-10.4); Monocytes Absolute Auto 0.8 K/mm3 (0.1-0.6); Monocytes Percent Auto 8.6 % (2.6-8.5); Neutrophils Absolute Auto 5.4 K/mm3 (1.3-6.7); Neutrophils Percent Auto 56.1 % (45.5-73.1); Platelet Count Result 309 k/mm3 (150-375); Red Cell Distribution Width 13.1 % (11.5-14.5); White Blood Count 9.6 K/mm3 (4.5-10.0)
--- NOTE | 2019-09-14 01:20 | ED.ARRPALP ---
HPI - Arrhythmia/Palpitations General Chief Complaint: Arrhythmia/Palpitations Stated Complaint: known afib; change in meds; palpitations Time Seen by Provider: 09/14/19 01:20 Source: patient and family Mode of arrival: ambulatory Limitations: no limitations History of Present Illness HPI narrative: Patient is a 64-year-old female who presents for evaluation of palpitations. Patient with a history of atrial fibrillation, follows with Dr. Maria, was on sotalol previously, but has had a down titration of sotalol and had first dose of flecainide today. When the patient was outside walking, she suddenly felt onset of palpitations, had increased heart rate on her home monitor, monitored this throughout the day took additional losartan tablet which did not improve the rate, and then patient sought care here in the emergency department. Patient is anticoagulated. She is currently reporting mild chest pain, palpitations. She reports feeling diaphoretic. No recent illnesses. Related Data Home Medications Medication Instructions Recorded Confirmed aspirin 325 mg tablet 325 mg PO DAILY 04/14/19 05/04/19 lysine 500 mg tablet 500 mg PO DAILY 04/14/19 05/04/19 omega-3 fatty acids 1,000 mg 1,000 mg PO DAILY 04/23/19 05/04/19 capsule magnesium 500 mg PO DAILY 05/04/19 05/04/19 Allergies Allergy/AdvReac Type Severity Reaction Status Date / Time Sulfa (Sulfonamide Allergy Unknown Verified 09/10/19 14:48 Antibiotics) SULFAMETHOXAZOLE (Generic Allergy Y Uncoded 09/10/19 14:48 Allergy) Review of Systems Review of Systems: Narrative: CONSTITUTIONAL: Denies fever CARDIOVASCULAR: Reports chest pain and palpitations RESPIRATORY: Denies cough or dyspnea. GASTROINTESTINAL: Denies abdominal pain SKIN: Denies rash MUSCULOSKELETAL: Denies back pain NEUROLOGIC: Denies headache [facility] Past Medical History Medical History CAD (coronary artery disease) Mild, not requiring intervention Hypertension NSTEMI (non-ST elevated myocardial infarction) NSVT (nonsustained ventricular tachycardia) PAF (paroxysmal atrial fibrillation) Surgical History Surgical History Status post cholecystectomy Status post hysterectomy Status post tonsillectomy Family History Family History (System 09/10/19 @ 14:48 by Danilo Kendrick) Sibling Family history of malignant neoplasm Family history of lupus erythematosus Hypertension Family history of arthritis Father Family history of dementia Hypertension Mother Hypertension Sibling Family history of arthritis Social History Social History Social History: The patient lives in [place], [place] with her significant other, Sander. She has a lab/boxer mix named Margaret that lives at home. 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 She has 2 biologic sons and 1 adopted son. She designates her eldest son, Christian Stockton, as her surrogate decision maker and she wishes to be a full code. She drinks alcohol very rarely and on social occasions. No drug use. Smoking status: Never smoker Tobacco type: cigarettes Alcohol intake: never Substance use: never Gender identity (if verbalized by the patient): Female Agree to blood products: Yes Exam Narrative: Exam Narrative: GENERAL: Awake, alert, conversant HEAD: Normocephalic, atraumatic. EYES: PERRLA and EOMI. ENT: Nares clear, no rhinorrhea or epistaxis. Mucous membranes moist. NECK: Supple. CHEST: No respiratory distress, breathing even and non labored HEART: Tachycardic rate, irregular rhythm ABDOMEN:Non distended, non tender EXTREMITIES: Normal range of motion. No edema. SKIN: Warm, dry, no rash. NEURO:No focal deficits. Alert and oriented x3 Course Vital Signs Vital signs: Vital Sig
[2019-09-14 01:25] LABS: INR 1.2; Prothrombin Time 14.5 Seconds (11.1-14.7)
[2019-09-14 01:26] LABS: Partial Thromboplastin Time 33.4 SECONDS (22.3-36.8)
[2019-09-14 01:28] LABS: Anion Gap 11.8 mmol/L (7-16); Blood Urea Nitrogen 19 mg/dL (7-17); Carbon Dioxide 28 mmol/L (22-30); Chloride 102 mmol/L (98-107); Estimated CRCL calculation 73 ml/min; Estimated Glomerular Filt Rate > 60; Glucose 101 mg/dL (65-105); Potassium 3.8 mmol/L (3.4-5.0); Sodium 138 mmol/L (137-145)
[2019-09-14 01:39] LABS: Troponin I < 0.012 ng/mL (0.000-0.034)
[2019-09-14] MEDS: dilTIAZem HCl INJ 25 MG/5 ML VIAL 10 MG IV PUSH (02:21)
--- NOTE | 2019-09-14 04:13 | PC.NURSE ---
pt converted to NSR at this time.
[2019-09-14 05:17] LABS: Troponin I < 0.012 ng/mL (0.000-0.034)
--- NOTE | 2019-09-14 05:47 | ADMGEN ---
This patient, Gifty Brown, was admitted to IMU Room 200-01 FROM ER 09/14/19 0450. Patient/family oriented to hospital policies and general routines including ID bracelet, bed and alarms, visiting hours, pain management, procedures, bathroom and other care routines, personal items, smoking policy, room service/diet, and visiting hours. Valuables list has been completed. Information on how to activate the Rapid Response Team has been discussed. Patient/Family are encouraged to report perceived risks to care and to ask questions if they do not understand what they are told or what they should do.
[2019-09-14 07:45] LABS: Troponin I < 0.012 ng/mL (0.000-0.034)
--- NOTE | 2019-09-14 08:00 | ECG_ITS ---
Measurements Intervals [place] Rate: 65 P: 58 AK: 154 QRS: 17 QRSD: 82 T: 70 QT: 408 QTc: 424 Interpretive Statements SINUS RHYTHM ST-T WAVE ABNORMALITY IN ANTEROLATERAL LEADS- CONSIDER ISCHEMIA ABNORMAL ECG Electronically Signed On 09-14-2019 9:15:04 CDT by Ed Sullivan D.O.
[2019-09-14 08:28] LABS: Magnesium 2.1 mg/dL (1.6-2.3)
[2019-09-14] MEDS: POTASSIUM CHLORIDE 20 MEQ TABLET PO (08:30)
--- NOTE | 2019-09-14 11:36 | PM.IMHP ---
H&P: HPI History of Present Illness Chief complaint: A fib with rvr Narrative: Gifty Brown is a 64 year old female with PMH significant for paroxysmal atrial fibrillation diagnosed in March 2019 on xarelto, hypertension, and CAD who presented to the emergency department for the evaluation of palpitations. She reported that she was having bradycardia and intermittent episodes of PAF on sotalol so she talked with her laboratory scientist, Dr. Maria, and planned to weans sotalol and begin flecainide. She took sotalol 60mg BID 09/08-09/10. She began flecainide 09/11. On Saturday, 09/12, she noticed palpitations in the morning which stopped. Later that day when she was walking in the pool, her palpitations recurred. She reports that she tried vagal maneuvers, deep breathing, and ice cold shower with no relief. She tried to rest but developed recurrent palpitations and her heart rate was in the 150s. She developed chest tightness and her blood pressure was elevated 161/102. She took an additional dose of losartan but her symptoms did not improve so she presented to the emergency department for further evaluation. Initial workup in the emergency department revealed WBC 9,600, Hb 16.1, Hct 47.9, platelets 309, sodium 138, potassium 3.8, choride 102, CO2 28, BUN 19, Cr 0.6, glucose 101, troponin <0.012, EKG read as atrial fibrillation with RVR (rate 146), QTc 461, and borderline ST abnormality diffusely. She was treated with diltiazem gtt and converted to sinus rhythm. Diltiazem gtt was discontinued and she remains in sinus rhythm. She was admitted to the IMU with telemetry monitoring. Cardiology is on board and input is greatly appreciated. Review of Systems Review of Systems: Narrative: Constitutional: Denies fever, chills, fatigue, and appetite change. Eyes: Denies vision change. No additional eye complaints. ENT: Denies change in hearing, nasal congestion, dysphagia, odynophagia, and sore throat. Cardiovascular: Reports intermittent palpitations with episodes of paroxysmal atrial fibrillation with RVR. Denies chest pain. Denies PND and orthopnea. Denies dyspnea on exertion. Respiratory: Denies cough and shortness of breath. Gastrointestinal: Denies abdominal pain, nausea, and vomiting. Genitourinary: Denies dysuria, frequency, urgency, and hesitancy. Musculoskeletal: Denies joint pain and swelling. Skin: Denies lesions and wounds. Neurologic: Reports occasioanl headaches. No complaints of lateralizing weakness, speech change, or vision change. Psychiatric: No complaints. Hematologic: On xarelto. All systems reviewed & are unremarkable except as noted in HPI and below PMFSH Past Medical History Medical History (Updated 09/14/19 @ 11:55 by Erin Arreaga PA-C) CAD (coronary artery disease) Mild, not requiring intervention Hypertension NSTEMI (non-ST elevated myocardial infarction) NSVT (nonsustained ventricular tachycardia) PAF (paroxysmal atrial fibrillation) Surgical History Surgical History (Updated 09/14/19 @ 11:53 by Erin Arreaga PA-C) S/P shoulder surgery Status post cholecystectomy Status post hysterectomy Status post tonsillectomy Family History Family History Sibling Family history of malignant neoplasm Family history of lupus erythematosus Hypertension Family history of arthritis Father Family history of dementia Hypertension Mother Hypertension Sibling Family history of arthritis Social History Social History (Updated 09/14/19 @ 11:53 by Erin Arreaga PA-C) Social History: The patient lives in [place], [place] with her significant other, Sander. She has a lab/boxer mix named Margaret that lives at home. 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 She has 2 biologic sons and 1 adopted son. She designates her eldest son, Christian Stockton, as her surrogate d
--- NOTE | 2019-09-14 11:59 | PM.CNCAR ---
Assessment and Plan Additional Plan 64-year-old patient with a history of atrial fibrillation now also with history of atrial flutter. She had a symptomatic recurrence last evening about 1 week after being started on flecainide. After being treated with diltiazem her atrial rhythm organized and she is back in sinus rhythm and feels fairly well at this time. Since she has now failed 2 different antiarrhythmic drugs I believe she should be referred to electrophysiology for consultation with the hopes of ablating her AFib and a flutter. To assist with her symptomatic status in the interim I would like to place her on standard metoprolol which hopefully will provide some degree of rate control when she does go into AFib/flutter. She understands that this agent will not prevent these episodes. I will try to refer her to the arrhythmia center at [facility] Alfonso Maria MD [facility] History of Present Illness History of Present Illness Consult date/time: Date of service:09/14/19 11:59 Consult reason: atrial fibrillation Reason For Visit: A fib with rvr Narrative: This is a 64-year-old lady who I know from the office because of atrial arrhythmias who presented to the hospital yesterday evening with symptomatic tachycardia and palpitations and was found to be in atrial flutter with rapid ventricular response. Patient is now asymptomatic as she has converted back to sinus rhythm. She was initially seen by me in the early part of 2019 when she transitioned her care from her previous senior audit manager our office for ongoing follow-up. She was undergoing evaluation for atypical sounding chest pain and was initially referred to me to perform a coronary angiogram. Her coronary angiogram did not show any significant evidence of coronary disease she had normal left ventricular function by LV g and by echo. She was having episodes of intermittent atrial fibrillation which were treated with sotalol. The dosage was increased up to as high as 120 mg twice daily and she was followed in the office since then. She was report reporting very brief episodes of what sounded like breakthrough episodes of AFib but was doing reasonably well otherwise. She came back to see me in the office actually just within the last week and was reporting frequent episodes of breakthrough tachycardia and palpitations every 3-5 days and that these episodes with the each last 2-3 hours. Because of this I considered her of failure of sotalol and transition her from that drug to flecainide. Since she did not have any coronary disease or LV dysfunction I was reasonably comfortable starting that agent as an outpatient. She had recurrent episodes of tachycardia yesterday starting at about 5:00 p.m.. She eventually came to the Emergency Room something like midnight was evaluated and readmitted. Her electrocardiogram on arrival actually demonstrated atrial flutter with 2-1 conduction and she was of course treated with intravenous diltiazem in the emergency department. After this her rhythm was improved and she spontaneously converted back to sinus rhythm her IV diltiazem infusion was after that discontinued. Review of Systems Constitutional: Constitutional: Reports no additional constitutional complaints Eyes: Eyes: Reports no additional eye complaints ENT: Reports system reviewed and no additional complaints, except as documented Cardiovascular: Cardiovascular: Reports as per HPI and Reports palpitations Respiratory: Respiratory: Reports no additional respiratory complaints Gastrointestinal: Gastrointestinal: Reports no additional gastrointestinal complaints Genitourinary: Genitourinary: Reports no additional female genitourinary complaints Musculoskeletal: Musculoskeletal: Reports no additional musculoskeletal complaints Integumentary/Breasts: Skin/Breast: Reports system reviewed and no additional complaints, except as docu Neurologic: Reports system reviewed and no additional comp
[2019-09-14] MEDS: METOPROLOL SUCCINATE EXT REL 50 MG TABCR PO (12:54)
--- NOTE | 2019-09-14 16:35 | PM.DS ---
DS: Admitting Diagnosis Admitting Diagnosis Admitting Diagnosis: Unspecified atrial fibrillation DS: Discharge Diagnosis Discharge Diagnosis (1) Atrial fibrillation with rapid ventricular response: Code(s): I48.91 - Unspecified atrial fibrillation Status: Acute Assessment and Plan: Discharge Summary Date of Service 09/14/19: Mrs. Brown is a 64 y.o. female with PMH significant for paroxysmal atrial fibrillation on xarelto, hypertension, and CAD who presented to the emergency department for the evaluation of palpitations. She was weaned from sotalol 09/10 due to bradycardia and persistent episodes of PAF and started flecainide 09/11. She subsequently developed atrial fibrillation with RVR 09/12 despite flecainide. Initial workup in the emergency department revealed WBC 9,600, Hb 16.1, Hct 47.9, platelets 309, sodium 138, potassium 3.8, chloride 102, CO2 28, BUN 19, Cr 0.6, glucose 101, troponin <0.012, EKG with atrial fibrillation with RVR (rate 146), QTc 461, borderline ST abnormality. She converted to normal sinus rhythm with cardizem gtt which was initiated in the ED. She was admitted to the hospitalist service and cardiology was consulted and recommended a referral to electrophysiology at [facility] for a consultation for catheter ablation since she has failed two antiarrhythmic agents. She was placed on metoprolol in the interim. She was monitored on telemetry and remained in sinus rhythm. She was discharged in stable condition on the afternoon of 09/14/19. (2) Hypertension: Qualifiers: Hypertension type: essential hypertension Qualified Code(s): I10 - Essential (primary) hypertension Code(s): I10 - Essential (primary) hypertension Status: Acute DS: Summary Hospital Course Reason for hospitalization: As above. Status at Discharge Functional status at discharge: independent ambulation Overall status at discharge: patient is back to baseline Time Spent with Patient Time attestation: Total time spent providing and/or coordinating discharge services: 25 minutes Exam Narrative: Exam Narrative: Vitals at presentation: Temp Pulse Resp BP Pulse Ox 98 F 73 16 148/89 H 99 09/14/19 00:56 09/14/19 00:56 09/14/19 00:56 09/14/19 00:56 09/14/19 00:56 Vitals at discharge: Temp Pulse Resp BP Pulse Ox 97.7 F 62 16 132/82 100 09/14/19 16:00 09/14/19 16:00 09/14/19 16:00 09/14/19 16:00 09/14/19 16:00 General: Very pleasant, cooperative, well-developed and well-nourished 64 y.o. female lying in the semi-recumbent position in bed in no acute distress. HEENT: Normocephalic and atraumatic. Conjunctivae and lids normal. EOMI. Moist oral mucosa. Neck: Supple without lymphadenopathy or masses. Cardiac: Rate 70 and rhythm regular. Telemetry reviewed from 09/13 with normal sinus rhythm. No murmur appreciated. No JVD. Lungs: Effort normal. Lungs clear to auscultation. Abdomen: Normoactive bowel sounds. Lungs clear to auscultation bilaterally. Extremities: No lower extremity edema. No calf tenderness. Palpable DP and PT bilaterally. Neurological: Alert. No focal neurological deficits noted to casual conversation. Speech is clear. Skin: Warm and dry. Psychiatric: Judgment and insight intact. Pleasant mood and normal affect. DS: Data Data Completed and Pending Labs on day of discharge: Labs from last 24 hours 09/14/19 09/14/19 09/14/19 07:14 07:13 07:13 WBC RBC Hgb Hct MCV MCH MCHC RDW Plt Count MPV Immature Gran % (Auto) Neut % (Auto) Lymph % (Auto) [place] % (Auto) Eos % (Auto) Baso % (Auto) Lymph # (Auto) [place] # (Auto) Eos # (Auto) Baso # (
== END 2019-09-14 17:03 | disposition home or self-care (01) ==
LOC: ANHED 03:41 → ANHIMU 04:16
PROVIDERS: Physician Assistant; Admitting Provider Internal Medicine; Emergency Provider Emergency Medicine; PCP Physician Assistant; Visit Provider Family Medicine
DX: I48.91 Unspecified atrial fibrillation (principal); I10 Essential (primary) hypertension; I25.10 Atherosclerotic heart disease of native coronary artery without angina pectoris; I25.2 Old myocardial infarction; Z79.01 Long term (current) use of anticoagulants; Z79.899 Other long term (current) drug therapy; Z87.891 Personal history of nicotine dependence; Z88.2 Allergy status to sulfonamides
CPT/HCPCS: 36415; 71046; 80048; 83735; 84443; 84484; 85025; 85610; 85730; 93005; 96365; 96366; 99285; A9270; G0378

== ENCOUNTER 2022-11-17 15:21 | Emergency (ER) | payer OTHER, SELFPAY ==
--- NOTE | 2022-11-17 15:45 | ECG_ITS ---
Measurements Intervals [place] Rate: 87 P: 37 CT: 144 QRS: 4 QRSD: 77 T: 39 QT: 360 QTc: 434 Interpretive Statements SINUS RHYTHM LEFT VENTRICULAR HYPERTROPHY AND ST-T CHANGE CONSIDER INFERIOR INFARCT, AGE INDETERMINATE BORDERLINE ST-T WAVE ABNORMALITY- ANTEROLATERAL LEADS BASELINE ARTIFACT- II, III, AVF, V3 ABNORMAL ECG COMPARED TO ECG 09/14/2019 08:58:50 LEFT VENTRICULAR HYPERTROPHY NOW PRESENT Electronically Signed On 11-17-2022 20:31:15 CDT by Ed Sullivan D.O.
[2022-11-17 15:46] VITALS: BP 167/94; PULSE 94; RESP 18; TEMP 36.4; O2SAT 98
--- NOTE | 2022-11-17 15:46 | ED.CHESTPAIN ---
HPI - Chest Pain General Chief Complaint: Chest Pain Stated Complaint: chest pain Time Seen by Provider: 11/17/22 15:33 Source: patient and RN notes reviewed Mode of arrival: ambulatory Limitations: no limitations History of Present Illness HPI narrative: Patient presents today complaining of chest tightness, mild shortness of breath, and belching. Symptoms began 1.5 hours prior to arrival. Tried some clear soda to help with symptoms. Denies recent illness, abdominal pain, nausea vomiting, sweats or chills, numbness or tingling, dizziness or lightheadedness. History of AFib with cardiac ablation. Currently takes Xarelto and metoprolol. Sees cardiology at [facility]. Related Data Home Medications Medication Instructions Recorded Confirmed lysine 500 mg tablet (L-Lysine) 500 mg PO DAILY 04/14/19 09/14/19 omega-3 fatty acids 1,000 mg 1,000 mg PO DAILY 04/23/19 09/14/19 capsule (Fish Oil Concentrate) magnesium 250 mg tablet 500 mg PO DAILY 05/04/19 09/14/19 rivaroxaban 20 mg tablet (Xarelto) 20 mg PO DAILY 09/14/19 09/14/19 metoprolol succinate 25 mg 12.5 mg PO HS 11/17/22 11/17/22 tablet,extended release 24 hr metoprolol succinate 50 mg 25 mg PO QAM 11/17/22 11/17/22 tablet,extended release 24 hr Allergies Allergy/AdvReac Type Severity Reaction Status Date / Time Sulfa (Sulfonamide Allergy Unknown Verified 09/10/19 14:48 Antibiotics) SULFAMETHOXAZOLE (Generic Allergy Y Uncoded 09/10/19 14:48 Allergy) Review of Systems Review of Systems: CONSTITUTIONAL: Denies body aches, fever, chills, or sweats. EYES: Denies visual changes, redness, or discharge. ENT: Denies rhinorrhea, congestion, sore throat, or otalgia. CARDIOVASCULAR: Denies palpitations, or edema.+ chest tightness RESPIRATORY: Denies cough.+ mild shortness of breath GASTROINTESTINAL: Denies abdominal pain, nausea, vomiting, or diarrhea.+ belching GENITOURINARY: Denies dysuria or hematuria. SKIN: Denies rash, itching, or wounds. MUSCULOSKELETAL: Denies back pain, joint pain, or myalgia. NEUROLOGIC: Denies headache, numbness, tingling, or weakness. PSYCH: Denies depression or anxiety. [facility] Past Medical History Medical History CAD (coronary artery disease) Mild, not requiring intervention Hypertension NSTEMI (non-ST elevated myocardial infarction) NSVT (nonsustained ventricular tachycardia) PAF (paroxysmal atrial fibrillation) Surgical History Surgical History S/P shoulder surgery Status post cholecystectomy Status post hysterectomy Status post tonsillectomy Family History Family History Sibling Family history of malignant neoplasm Family history of lupus erythematosus Hypertension Family history of arthritis Father Family history of dementia Hypertension Mother Hypertension Sibling Family history of arthritis Social History Social History Social History: The patient lives in [place], [place] with her significant other, Sander. She has a lab/boxer mix named Margaret that lives at home. 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 She has 2 biologic sons and 1 adopted son. She designates her eldest son, Christian Stockton, as her surrogate decision maker and she wishes to be a full code. She drinks alcohol very rarely and on social occasions. No drug use. Smoking packs per day: 0.5 Smoking cigarettes per day: 10.0 Years smoked: 20 Smoking pack-years: 10.00 Smoking status: Former smoker Tobacco type: cigarettes Second hand tobacco smoke exposure: No Smoking end date: 02/18/94 Alcohol intake: never Substance use: never Additional living arrangements comments: She lives with her
--- NOTE | 2022-11-17 16:02 | PC.NURSE ---
pt request to drive self to er for eval. pt denies any active chest pain while at the urgent care.
== END 2022-11-17 16:01 | disposition short-term general hospital (02) ==
PROVIDERS: Emergency Provider Nurse Practitioner; PCP Internal Medicine
DX: R07.9 Chest pain, unspecified (principal); R06.02 Shortness of breath; I25.10 Atherosclerotic heart disease of native coronary artery without angina pectoris; I10 Essential (primary) hypertension; I25.2 Old myocardial infarction; I48.0 Paroxysmal atrial fibrillation; Z79.899 Other long term (current) drug therapy; Z87.891 Personal history of nicotine dependence
CPT/HCPCS: 93005; 99213; G0463

== ENCOUNTER 2022-11-17 16:17 | Emergency (ER) | payer OTHER, SELFPAY ==
--- NOTE | ~2022-11-17 | XR_ITS ---
EXAMINATION: XR chest 2V Exam Date/Time: 11/17/2022 16:40 CDT HISTORY: chest pain Comparison: 09/14/2019. RESULT: Lines, tubes, and devices: Cholecystectomy clips. Lungs and pleura: Clear. Cardiomediastinal silhouette: Stable. Other: No acute osseous or upper abdominal finding. IMPRESSION: No acute cardiopulmonary process. Reviewed, dictated and finalized at location K.
--- NOTE | 2022-11-17 16:19 | ECG_ITS ---
Measurements Intervals [place] Rate: 86 P: 33 SD: 144 QRS: 7 QRSD: 78 T: 72 QT: 367 QTc: 439 Interpretive Statements SINUS RHYTHM LEFT VENTRICULAR HYPERTROPHY WITH ST-T CHANGE CONSIDER INFERIOR INFARCT, AGE INDETERMINATE NONSPECIFIC ST & T-WAVE ABNORMALITY- ANTERIOR LEADS ABNORMAL ECG COMPARED TO ECG 11/17/2022 15:46:45 NO SIGNIFICANT CHANGES Electronically Signed On 11-17-2022 20:32:53 CDT by Ed Sullivan D.O.
[2022-11-17 16:31] VITALS: PULSE 86; RESP 20; TEMP 36.6; O2SAT 98
[2022-11-17 16:33] LABS: Basophils Percent Auto 0.5 % (0.2-1.2); Eosinophils Absolute Auto 0.2 K/mm3 (0-0.3); Eosinophils Percent Auto 3.1 % (0-4.4); Hematocrit 43.2 % (37.0-47.0); Hemoglobin 14.2 g/dL (12.0-15.0); Immature Granulocyte Absolute 0.03 K/mm3 (0.00-0.031); Immature Granulocyte Percent A 0.4 % (0-0.5); Lymphocytes Absolute Auto 2.03 K/mm3 (0.9-3.2); Lymphocytes Percent Auto 27.7 % (18.3-44.2); Mean Corpuscular HGB Conc 32.9 g/dl (32-36); Mean Corpuscular Hemoglobin 28.8 pg (26-34); Mean Corpuscular Volume 87.6 fl (80-100); Mean Platelet Volume 10.8 fl (7.4-10.4); Monocytes Absolute Auto 0.5 K/mm3 (0.1-0.6); Monocytes Percent Auto 6.7 % (2.6-8.5); Neutrophils Absolute Auto 4.5 K/mm3 (1.3-6.7); Neutrophils Percent Auto 61.6 % (45.5-73.1); Platelet Count Result 289 k/mm3 (150-375); Red Blood Count 4.93 M/mm3 (4.2-5.4); Red Cell Distribution Width 13.3 % (11.5-14.5); White Blood Count 7.3 K/mm3 (4.5-10.0)
[2022-11-17 16:44] LABS: Prothrombin Time 13.4 Seconds (11.1-14.7)
[2022-11-17 16:49] LABS: Alanine Aminotransferase 29 U/L (6-35); Albumin Level 4.7 g/dL (3.5-5.1); Alkaline Phosphatase 65 U/L (38-126); Anion Gap 7 mmol/L (8-16); Aspartate Amino Transferase 31 U/L (14-36); Bilirubin,Total 0.5 mg/dL (0.2-1.3); Blood Urea Nitrogen 9 mg/dL (7-17); Calcium 9.5 mg/dL (8.4-10.2); Carbon Dioxide 28 mmol/L (22-30); Chloride 107 mmol/L (98-107); Estimated CRCL calculation 74 ml/min; Estimated Glomerular Filt Rate > 60; Glucose 115 mg/dL (65-110); Lipase 79 U/L (23-300); Potassium 3.3 mmol/L (3.4-5.0); Sodium 142 mmol/L (137-145)
[2022-11-17 16:52] VITALS: PULSE 85; O2SAT 96
[2022-11-17 16:59] VITALS: BP 170/97; PULSE 82; RESP 16; O2SAT 97
[2022-11-17 17:00] LABS: Troponin I < 0.012 ng/mL (0.000-0.034)
--- NOTE | 2022-11-17 17:19 | ED.CHESTPAIN ---
HPI - Chest Pain General Chief Complaint: Chest Pain Stated Complaint: Chest Pain Time Seen by Provider: 11/17/22 16:50 Source: patient Mode of arrival: ambulatory Limitations: no limitations History of Present Illness HPI narrative: Patient is 67-year-old female, with past medical history of paroxysmal atrial fibrillation, chronically anticoagulated on Xarelto, who presents to the ED with report of chest pain. 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 She states the tightness felt in her anterior upper chest. She felt like she needed to belch at that time. She denied any radiation of the pain. Denied any associated symptoms with the pain, denied neck pain, jaw pain, arm pain, dizziness, lightheadedness, nausea, diaphoresis. Denied aggravation with exertion. She reports the tightness has somewhat subsided, but feels more like a soreness currently. She does mention that she cleaned her pool this morning and may be sore from that. Otherwise denies any recent cough or cold symptoms, lower extremity pain or swelling, shortness of breath, fevers. Patient sees [facility]. She had a cardiac catheterization in April 2019 which did not show any significant atherosclerotic disease. Suggestive of coronary spasm. Patient later underwent cardiac ablation for her atrial fibrillation. She is on metoprolol for rate control. Denies history of hypertension, hyperlipidemia, diabetes, smoking. Related Data Home Medications Medication Instructions Recorded Confirmed lysine 500 mg tablet (L-Lysine) 500 mg PO DAILY 04/14/19 09/14/19 omega-3 fatty acids 1,000 mg 1,000 mg PO DAILY 04/23/19 09/14/19 capsule (Fish Oil Concentrate) magnesium 250 mg tablet 500 mg PO DAILY 05/04/19 09/14/19 rivaroxaban 20 mg tablet (Xarelto) 20 mg PO DAILY 09/14/19 09/14/19 metoprolol succinate 25 mg 12.5 mg PO HS 11/17/22 11/17/22 tablet,extended release 24 hr metoprolol succinate 50 mg 25 mg PO QAM 11/17/22 11/17/22 tablet,extended release 24 hr Allergies Allergy/AdvReac Type Severity Reaction Status Date / Time Sulfa (Sulfonamide Allergy Unknown Anaphylaxis Verified 11/17/22 16:57 Antibiotics) SULFAMETHOXAZOLE (Generic Allergy Y Uncoded 11/17/22 16:57 Allergy) Review of Systems Review of Systems: CONSTITUTIONAL: Denies fever, chills, or sweats. ENT: Denies rhinorrhea, congestion, sore throat. CARDIOVASCULAR: See HPI. RESPIRATORY: Denies cough or dyspnea. GASTROINTESTINAL: Denies abdominal pain, nausea, vomiting. MUSCULOSKELETAL: Denies back pain, joint pain, or myalgia. NEUROLOGIC: Denies dizziness, lightheadedness, headache, numbness, or weakness. All systems reviewed & are unremarkable except as noted in HPI and below PMFSH Past Medical History Medical History CAD (coronary artery disease) Mild, not requiring intervention Hypertension NSTEMI (non-ST elevated myocardial infarction) NSVT (nonsustained ventricular tachycardia) PAF (paroxysmal atrial fibrillation) Surgical History Surgical History S/P shoulder surgery Status post cholecystectomy Status post hysterectomy Status post tonsillectomy Family History Family History Sibling Family history of malignant neoplasm Family history of lupus erythematosus Hypertension Family history of arthritis Father Family history of dementia Hypertension Mother Hypertension Sibling Family history of arthritis Social History Social History Social History: The patient lives in [place], [place] with her significant other, Sander. She has a lab/boxer mix named Margaret that lives at home. 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
[2022-11-17 17:48] LABS: Magnesium 2.2 mg/dL (1.6-2.3)
[2022-11-17 17:58] LABS: NT Pro B Type Natriuretic Pept 246 pg/mL (19.9-100)
[2022-11-17] MEDS: BELLADONNA ALK/PHENOB ELIX 10 ML, MAG HYDROX/ALUMINUM HYD/SIMETH 30 ML, LIDOCAINE HCL 2... PO (18:03)
[2022-11-17] MEDS: POTASSIUM CHLORIDE 20 MEQ PACKET (FOR LIQUID) 40 MEQ PO (18:03)
[2022-11-17 18:07] VITALS: BP 156/77; PULSE 80; RESP 20; O2SAT 98
--- NOTE | 2022-11-17 19:25 | PC.NURSE ---
This RN assumed care of patient. This RN took patient report from MARGY Mcdowell.
[2022-11-17 20:17] LABS: Troponin I < 0.012 ng/mL (0.000-0.034)
== END 2022-11-17 21:15 | disposition home or self-care (01) ==
PROVIDERS: Emergency Medicine; Emergency Provider Physician Assistant; PCP Internal Medicine
DX: R07.89 Other chest pain (principal); I48.0 Paroxysmal atrial fibrillation; I25.10 Atherosclerotic heart disease of native coronary artery without angina pectoris; I10 Essential (primary) hypertension; I25.2 Old myocardial infarction; Z90.49 Acquired absence of other specified parts of digestive tract; Z90.710 Acquired absence of both cervix and uterus; Z79.01 Long term (current) use of anticoagulants; I51.7 Cardiomegaly; R94.31 Abnormal electrocardiogram [ECG] [EKG]
CPT/HCPCS: 36415; 71046; 80053; 83690; 83735; 83880; 84484; 85025; 85610; 85730; 93005; 99284; A9270